=== PATIENT | female | born 1975 | race Caucasian/White ===

== ENCOUNTER 2020-07-11 11:35 | Outpatient (CLI) | payer OTHER, SELFPAY | END 2020-07-11 11:36 | disposition home or self-care (01) | LOC: CHSLAB 11:47 | PROVIDERS: Visit Provider Specialist | DX: D22.5 Melanocytic nevi of trunk (principal) | CPT/HCPCS: 88305; 88342 ==

== ENCOUNTER 2025-01-18 23:00 | Emergency (ER) | payer OTHER, SELFPAY ==
--- NOTE | ~2025-01-18 | XR_ITS ---
Examination: XR chest 1V portable Clinical History: shortness of breath X 1 WEEK. Comparison: None Technique: Portable AP Findings: Heart size normal. Lungs clear. No acute bony abnormality. IMPRESSION: 1. No acute cardiopulmonary findings given portable technique. Reviewed, dictated and finalized at location R.
--- NOTE | ~2025-01-18 | CT_ITS ---
CTA CHEST CLINICAL HISTORY: rule out PE. SHORTNESS OF BREATH. ELEVATED D-DIMER. . COMPARISON: Chest x-ray today TECHNIQUE: Helical CTA performed from thoracic inlet to upper abdomen 200 mL IV contrast Coronal, sagittal reformats. Multiplanar MIPS CT images acquired with automatic exposure control for dose reduction DLP: 2105 mGy-cm FINDINGS: Pulmonary arteries: No PE. Thoracic Aorta: No dissection or aneurysm. Heart/pericardium: Unremarkable. RV/LV ratio: Normal. Lungs/Pleura: Trace interlobular septal thickening. Tracheobronchial tree: Patent. Nodes: No enlarged nodes. Bones: No acute bony abnormality. Soft tissues: Unremarkable. Visualized upper abdomen: Hepatomegaly, with steatosis. IMPRESSION: 1. No PE or other acute cardiopulmonary findings. Reviewed, dictated and finalized at location R.
[2025-01-18 23:00] VITALS: BP 190/98; PULSE 107; PULSE 109; RESP 20; TEMP 36.6; O2SAT 100; O2SAT 98
--- NOTE | 2025-01-18 23:02 | ED_ITS ---
HPI - SOB/Dyspnea General Chief Complaint: Shortness of Breath/Dyspnea Stated Complaint: Short of breath Time Seen by Provider: 01/18/25 23:02 Source: patient Mode of arrival: ambulatory Limitations: no limitations History of Present Illness HPI Narrative: 49-year-old female with a history of obesity, diabetes mellitus, dyslipidemia, anxiety/ depression presents to the ED with a one-week history of -- shortness of breath. Patient is having difficulty catching her breath. No chest pain. No cough or sputum production. No fever or chills. MD elicited complaint: shortness of breath Onset (ago): week(s) ( One week) Severity: moderate Exacerbating factors: nothing Relieving factors: nothing Associated symptoms: denies other symptoms Treatment prior to arrival: none Related Data Home oxygen amount: none Allergies Allergy/AdvReac Type Severity Reaction Status Date / Time codeine AdvReac Severe Swelling Verified 01/18/25 23:09 of Lip/Tongue/Throat hydrocodone AdvReac Severe Swelling Verified 01/18/25 23:09 of Lip/Tongue/Throat Review of Systems 2 Review of Systems: All systems reviewed & are unremarkable except as noted in HPI and below Constitutional: Constitutional: Reports as per HPI and Reports no additional constitutional complaints Eyes: Eyes: Reports as per HPI and Reports no additional eye complaints ENT: Reports system reviewed and no additional complaints, except as documented and Reports as per HPI Cardiovascular: Cardiovascular: Reports as per HPI and Reports no additional cardiovascular complaints Respiratory: Respiratory: Reports as per HPI, Reports no additional respiratory complaints and Reports dyspnea Gastrointestinal: Gastrointestinal: Reports as per HPI and Reports no additional gastrointestinal complaints Genitourinary: Genitourinary: Reports no additional female genitourinary complaints and Reports as per HPI Musculoskeletal: Musculoskeletal: Reports no additional musculoskeletal complaints and Reports as per HPI Integumentary/Breasts: Skin/Breast: Reports system reviewed and no additional complaints, except as docu and Reports as per HPI Neurologic: Reports system reviewed and no additional complaints, except as documented and Reports as per HPI Psychiatric: Psychiatric: Reports no additional psychiatric complaints and Reports as per HPI Endocrine: Endocrine: Reports no additional endocrine complaints and Reports as per HPI Hematologic/Lymphatic: Hematologic/Lymphatic: Reports no additional hematologic/lymphatic complaints and Reports as per HPI Allergic/Immunologic: Allergic/Immunologic: Reports no additional allergic/immunologic complaints and Reports as per HPI [facility] Past Medical History Medical History (Updated 01/19/25 @ 01:17 by Cabrera Schneider MD) Diabetes mellitus Dyslipidemia Exam 2 Narrative: oxygen saturation of 99% on room air with respiratory rate of 19. Const: General: no acute distress Nutritional Appearance: obese O rientation/consciousness: patient oriented x3 Limitations: no limitations HENMT: Head: normal to inspection Ears: external ears normal F rocio/Nose/Sinus: Normal external nose present Face and sinus: normal facial exam Mouth: Yes Normal oral and palatal mucosa present Throat: posterior oropharynx normal Eyes: Conjunctivae: conjunctivae normal Pupils: Equal, round and reactive pupils present EOM: EOMs intact bilaterally Direct Ophthalmoscopy: no photophobia Neck: Neck: normal visual inspection, no lymphadenopathy and no meningeal signs Chest: Chest palpation & inspection: normal inspection of the chest Resp: Effort & Inspection: normal respiratory effort Auscultation: clear to auscultation bilaterally Cardio: Rate: regular rate Rhythm: regular rhythm GI: GI Palp: Yes Soft to palpation Auscultation: normal bowel sounds : General: Yes no CVA tenderness Back/Spine/Pelvis: Back: no CVA tenderness Skin: General skin exam: normal color Rashes: no rashes Wounds: no wounds Neuro: General: patient oriented x3, moves all extremities, no meningeal signs, no focal motor deficits and CN's II-XI intact bilaterally Cranial nerves: Yes Nystagmus not present Speech: normal speech Gait exam (Neuro): Normal gait present Extrem: General: normal to inspection, no clubbing, cyanosis or edema and no pedal edema Psych: Mental Status: mental status grossly normal Affect: normal affect Attitude: cooperative Course Course Emergency Course: Shortness of breath- clinically the patient does not have any evidence of respiratory distress. Patient is saturating 99% on room air with a respiratory rate of 20. Chest is clear on auscultation. Chest x-ray does not show any infiltrates evidence of CHF. The patient had an ABG on room air which was noted to be 742/30/79/94%. The patient had a positive D-dimer for which the patient went on to have a CTA of the chest which did not show any evidence of PE or right heart strain. No consolidation noted. Vital Signs Vital signs: Vital Signs Temperature 36.6 C 01/18/25 23:00 Pulse Rate 107 H 01/18/25 23:00 Respiratory Rate 20 10/10/25 23:00 Blood Pressure 190/98 H 01/18/25 23:00 Pulse Oximetry 100 01/18/25 23:00 Oxygen Delivery Room Air 01/18/25 23:00 Temperature 36.6 C 01/18/25 23:00 Pulse Rate 95 01/19/25 00:22 Respiratory Rate 27 H 01/19/25 00:02 Blood Pressure 180/92 H 01/19/25 00:22 Pulse Oximetry 99 01/19/25 00:22 Oxygen Delivery Room Air 01/18/25 23:00 MDM - SOB/Dyspnea MDM Narrative Medical decision making narrative: Shortness of breath anxiety obstructive sleep apnea Differential Diagnosis Differential diagnosis: Likely acute exacerbation of chronic obstructive airways disease Medical Records Attestation: I reviewed the patient's medical records. Lab Data Attestation: I reviewed the patient's lab results. 01/18/25 23:32 01/18/25 23:32 Labs: Lab Results 01/18/25 Range/Units 23:32 WBC 8.6 (4.8-10.8) K/mm3 RBC 3.87 L (4.20-5.40) M/mm3 Hgb 10.7 L (12.0-15.0) g/dL Hct 33.5 L (35.0-49.0) % MCV 86.6 (78.0-102.0) fL MCH 27.6 (27.0-31.0) pg MCHC 31.9 L (32-36) g/dL RDW 14.6 H (11.6-14.4) % Plt Count 278 (150-420) K/mm3 MPV 10.3 (9.2-11.8) fl Immature Gran % (Auto) 0.5 H (0.0-0.0) % Neut % (Auto) 70.1 H (50.0-70.0) % Lymph % (Auto) 20.8 (18.0-42.0) % [place] % (Auto) 5.7 (2.0-11.0) % Eos % (Auto) 2.4 (1.0-6.0) % Baso % (Auto) 0.5 (0.0-1.0) % Lymph # (Auto) 1.80 (1.10-4.50) K/mm3 Fergus # (Auto) 0.49 (0.10-0.90) K/mm3 Eos # (Auto) 0.21 (0.02-0.50) K/mm3 Baso # (Auto) 0.04 (0.00-0.10) K/mm3 Abs Immat Gran (auto) 0.04 H (0.00-0.00) K/mm3 Absolute Neuts (auto) 6.06 (1.70-7.20) K/mm3 Absolute Nucleated RBC 0.00 (0.00-0.00) K/mm3 Nucleated RBC % 0.0 (0-0.0) % PT 10.1 (9.50-12.1) Seconds INR 0.9 APTT 24.7 (23.9-30.70) Sec D-Dimer 1.53 H (0.19-0.50) mg/L Sodium 142 (137-145) mmol/L Potassium 3.6 (3.4-5.0) mmol/L Chloride 111 H (98-107) mmol/L Carbon Dioxide 19 L (22-30) mmol/L Anion Gap 12 (4-12) mmol/L BUN 19 H (7-17) mg/dL Creatinine 0.80 (0.7-1.0) mg/dL Estim Creat Clear Calc 130 ml/min Estimated GFR > 60 (59 - ) Glucose 121 H (65-110) mg/dL Calculated Osmolality 297 H (285-295) mOsm/kg Lactic Acid 1.7 (0.4-2.0) mmol/L Calcium 10.0 (8.4-10.2) mg/dL Total Bilirubin 0.5 (0.2-1.3) mg/dL AST 21 (14-36) U/L ALT 22 (6-35) U/L Alkaline Phosphatase 74 (38-126) U/L Troponin I < 0.012 (0.000-0.034) ng/mL NT-Pro-B Natriuret Pep Pending Total Protein 7.6 (6.3-8.2) g/dL Albumin 4.4 (3.5-5.1) g/dL Procalcitonin 0.1 ng/mL Influenza A (RT-PCR) Negative (Negative) Influenza B (RT-PCR) Negative (Negative) RSV (RT-PCR) Negative (Negative) SARS-CoV-2 RNA (RT-PCR) Negative (Negative) ABG Data ABG results: 01/18/25 23:32 Puncture Site Right radial ABG pH 7.42 ABG pCO2 29.6 L ABG pO2 79.3 L ABG HCO3 18.7 L ABG O2 Saturation 94.4 L ABG Base Excess -4.7 L Oxyhemoglobin 93.9 L O2 Delivery Device Room air O2 Liters/Min Not Reportable ECG Data EKG #1: ECG completion date: 01/18/25 ECG completion time: 23:11 Interpretation: sinus tachycardia with a heart rate of 100. Normal axis. No ST-T wave changes noted. Discharge Plan Discharge Clinical Impression: Shortness of breath, Anxiety Patient Disposition: Home Condition: Stable Instructions: Antibiotic Form, Anxiety (ED), Shortness of Breath (ED) Patient Language: Moldovan Follow-up/Referrals: UNKNOWN,DOCTOR [Primary Care Provider] Time of Disposition: 01:17
--- OUTSIDE RECORDS SUMMARY | 2025-01-18 23:02 | XMS_ITS | Patient Health Record ---
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 Name Role Phone Adolph DEL ROSARIO, Eli Primary Care Provider Yancy Leonard Unavailable [phone] Navi Eleno Unavailable [phone] Allergies Allergen (clinical drug ingredient) Drug/Non Drug Allergy documented on EMR Reaction Allergy Type Onset Date Status acetaminophen / hydrocodone HYDROcodone-Acetamino phen Unknown Drug Allergy Active hydrocodone / ibuprofen HYDROcodone-Ibuprofen Unknown Drug Allergy Active codeine Codeine Unknown Drug Allergy Active Results Component Value Reference Range Notes UDT Reviewed date:12/21/2024 12:16:53 PM Interpretation: Performing Lab: Notes/Report: THC n 0 - 50 ng/ml Cocaine n 0 - 300 ng/ml Amphetamine p 0 - 1000 ng/ml Buprenorphine (BUP) n 0 - 10 ng/ml Secobarbital (Bar) n 0 - 300 ng/ml Oxazepam (BZO) n 0 - 300 ng/ml 9-zbktpkmhgv-8,0-ubssldrb-9,3-diphenylpyrrolidine (ANAMIKA P) n 0 - 300 ng/ml Methamphetamine (MET) n 0 - 1000 ng/ml Methylenedioxymethamphetamine (MDMA) n 0 - 500 ng/ml Morphine (MOP 300/[id number]) n 0 - 300 ng/ml Methadone (MTD) n 0 - 300 ng/ml Phencyclidine (PCP) n 0 - 25 ng/ml Nortriptyline (TCA) n 0 - 1000 ng/ml Oxycodone n 0 - 300 ng/ml UDT Reviewed date:01/04/2025 11:15:09 AM Interpretation: Performing Lab: Notes/Report: THC n 0 - 50 ng/ml Cocaine n 0 - 300 ng/ml Amphetamine p 0 - 1000 ng/ml Buprenorphine (BUP) n 0 - 10 ng/ml Secobarbital (Bar) n 0 - 300 ng/ml Oxazepam (BZO) n 0 - 300 ng/ml 6-drckynlmef-1,5-ytpzwqol-5,3-diphenylpyrrolidine (ANAMIKA P) n 0 - 300 ng/ml Methamphetamine (MET) n 0 - 1000 ng/ml Methylenedioxymethamphetamine (MDMA) n 0 - 500 ng/ml Morphine (MOP 300/[id number]) n 0 - 300 ng/ml Methadone (MTD) n 0 - 300 ng/ml Phencyclidine (PCP) n 0 - 25 ng/ml Nortriptyline (TCA) n 0 - 1000 ng/ml Oxycodone n 0 - 300 ng/ml UDT Reviewed date:06/08/2024 09:24:19 AM Interpretation: Performing Lab: Notes/Report: THC NEG 0 - 50 ng/ml Cocaine NEG 0 - 300 ng/ml Amphetamine NEG 0 - 1000 ng/ml Buprenorphine (BUP) NEG 0 - 10 ng/ml Secobarbital (Bar) NEG 0 - 300 ng/ml Oxazepam (BZO) NEG 0 - 300 ng/ml 1-oqwgtsdvlb-8,6-zuailsgt-2,3-diphenylpyrrolidine (ANAMIKA P) NEG 0 - 300 ng/ml Methamphetamine (MET) NEG 0 - 1000 ng/ml Methylenedioxymethamphetamine (MDMA) NEG 0 - 500 ng/ml Morphine (MOP 300/[id number]) NEG 0 - 300 ng/ml Methadone (MTD) NEG 0 - 300 ng/ml Phencyclidine (PCP) NEG 0 - 25 ng/ml Nortriptyline (TCA) NEG 0 - 1000 ng/ml Oxycodone NEG 0 - 300 ng/ml x NEG 0 - 300 ng/ml UDT Reviewed date:08/20/2024 10:28:56 AM Interpretation: Performing Lab: Notes/Report: THC N 0 - 50 ng/ml Cocaine N 0 - 300 ng/ml Amphetamine N 0 - 1000 ng/ml Buprenorphine (BUP) N 0 - 10 ng/ml Secobarbital (Bar) N 0 - 300 ng/ml Oxazepam (BZO) N 0 - 300 ng/ml 1-ajsauzucpa-9,3-rsznerss-5,3-diphenylpyrrolidine (ANAMIKA P) N 0 - 300 ng/ml Methamphetamine (MET) N 0 - 1000 ng/ml Methylenedioxymethamphetamine (MDMA) N 0 - 500 ng/ml Morphine (MOP 300/[id number]) N 0 - 300 ng/ml Methadone (MTD) N 0 - 300 ng/ml Phencyclidine (PCP) N 0 - 25 ng/ml Nortriptyline (TCA) N 0 - 1000 ng/ml Oxycodone N 0 - 300 ng/ml UDT Reviewed date:06/19/2024 09:57:39 PM Interpretation: Performing Lab: Notes/Report: THC N 0 - 50 ng/ml Cocaine N 0 - 300 ng/ml Amphetamine N 0 - 1000 ng/ml Buprenorphine (BUP) N 0 - 10 ng/ml Secobarbital (Bar) N 0 - 300 ng/ml Oxazepam (BZO) N 0 - 300 ng/ml 3-vtdlzginsm-8,7-qivfwjqw-4,3-diphenylpyrrolidine (ANAMIKA P) N 0 - 300 ng/ml Methamphetamine (MET) N 0 - 1000 ng/ml Methylenedioxymethamphetamine (MDMA) N 0 - 500 ng/ml Morphine (MOP 300/[id number]) N 0 - 300 ng/ml Methadone (MTD) N 0 - 300 ng/ml Nortriptyline (TCA) N 0 - 1000 ng/ml Oxycodone N 0 - 300 ng/ml UDT Reviewed date:09/20/2024 10:23:49 AM Interpretation: Performing Lab: Notes/Report: THC NEG 0 - 50 ng/ml Cocaine NEG 0 - 300 ng/ml Amphetamine POS 0 - 1000 ng/ml Buprenorphine (BUP) NEG 0 - 10 ng/ml Secobarbital (Bar) NEG 0 - 300 ng/ml Oxazepam (BZO) NEG 0 - 300 ng/ml 9-ronisvaedg-4,0-uqwbeotj-2,3-diphenylpyrrolidine (ANAMIKA P) NEG 0 - 300 ng/ml Methamphetamine (MET) NEG 0 - 1000 ng/ml Methylenedioxymethamphetamine (MDMA) NEG 0 - 500 ng/ml Morphine (MOP 300/[id number]) NEG 0 - 300 ng/ml Methadone (MTD) NEG 0 - 300 ng/ml Phencyclidine (PCP) NEG 0 - 25 ng/ml Nortriptyline (TCA) NEG 0 - 1000 ng/ml Oxycodone NEG 0 - 300 ng/ml x NEG 0 - 300 ng/ml Reason For Referral No Information Medications Medication SIG (Take, Route, Frequency, Duration) Notes Start Date End Date Status Atorvastatin Calcium 10 MG Tablet 1 tablet in the evening Orally Once a day 06/08/2024 Active Esomeprazole Magnesium 40 MG Capsule Delayed Release 1 capsule 1/2 to 1 hour before morning meal Orally Once a day 06/08/2024 Active DULoxetine HCl 30 MG Capsule Delayed Release Particles 3 capsules Orally Once a day 06/08/2024 Active Celecoxib 200 MG Capsule 1 capsule with food Orally Once a day 06/08/2024 Active metFORMIN HCl 1000 MG Tablet 1 tablet wi th a meal Orally twice a day Active Fexofenadine HCl 180 MG Tablet 1 tablet Swallow whole with water; do not take with fruit juices. Orally Once a day Active Famotidine 20 MG Tablet 1 tablet at bedt matilda as needed Orally Once a day Active Atomoxetine HCl 40 MG Capsule 1 capsule in the morning Orally Once a day; Duration: 90 days 01/04/2025 Active Iron 325 (65 Fe) MG Tablet 1 tablet Oral ly once a day 06/08/2024 Active Magnesium 200 MG Tablet 1 tablet Orally Once a day 06/08/2024 Active medroxyPROGESTERone Acetate 150 MG/ML Suspension ADMINISTER 1 ML IN THE MUSCLE ONCE EVERY 12 WEEKS DIRECTED. Intramuscular; Duration: 90 Days Active traZODone HCl 50 MG Tablet 1 tablet at b edtime as needed Orally Once a day; Duration: 90 days 01/04/2025 Active Social History Tobacco Use: Social History Observation Description Date Details (start date - stop date) Never Smoker NA - NA Sex Assigned At : Social History Observation Description Sex Assigned At Female Social History Miscellaneous: Social Info Question Answer Notes Advance Care Planning Are you your own decision-maker Yes Do you have Power of Postal Transportation Clerk for Health or [facility]? No Safety issues: Are there any firearms in the house? 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 No Any household pets? Yes Drug/Alcohol: Social Info Question Answer Notes Drugs Have you used drugs other than those for medical reasons in the past 12 months? No AUDIT-C (Standard) Did you have a drink containing alcohol in the past year? Yes Points 1 How often did you have six or more drinks on one occasion in the past year? Never (0 point) How many drinks did you have on a typical day when you were drinking in the past year? 1 or 2 drinks (0 point) How often did you have a drink containing alcohol in the past year? 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 Adm its, gummies a couple times a year if that Do you drink alcohol? No Problems Problem Type SNOMED Code ICD Code Onset Dates Problem Status W/U Status Risk Notes Problem Screening for cardiovascular system disease (430492878) Encounter for screening for cardiovascular disorders (Z13.6) Active confirmed Problem Dietary management surveillance (914904794) Dietary counseling and surveillance (Z71.3) Active confirmed Problem Depression Screening (321814061) Encounter for screening for depression (Z13.31) Active confirmed Problem Generalized anxiety disorder (44641829) SHAYNE (generalized anxiety disorder) (F41.1) Active confirmed Problem Attention deficit hyperactivity disorder (941648484) ADHD (attention deficit hyperactivity disorder), combined type (F90.2) Active confirmed Problem Mild recurrent major depression (48207317) MDD (major depressive disorder), recurrent episode, mild (F33.0) Active confirmed Problem Elevated blood-pressure reading without diagnosis of hypertension (813506277) Elevated blood pressure reading (R03.0) Active confirmed Problem Insomnia (374538644) Insomnia (G47.00) Active confirmed Vital Signs Heart Rate 106 /min 01/04/2025 Respiratory Rate 16 /min 01/04/2025 Height-cm 165.1 cm 01/04/2025 Blood pressure diastolic 95 mm Hg 01/04/2025 Weight-kg 143.34 kg 01/04/2025 Height 65 in 01/04/2025 Blood pressure systolic 166 mm Hg 01/04/2025 Weight 316 lbs 01/04/2025 BMI 52.58 kg/m2 01/04/2025 Encounters Encounter Location Date Provider Diagnosis [facility] [place] [address] [facility] [address] [place] [address] 06/08/2024 Yancy Therrl Elevated blood press ure reading R03.0 ; MDD (major depressive disorder), recurrent episode, mild F33.0 ; SHAYNE (generalized anxiety disorder) F41.1 and ADHD (attention deficit hyperactivity disorder), combined type F90.2 [facility] [place] [address] [facility] [address] [place] [address] 06/19/2024 Eleno Minor of concentratio n R41.840 [facility] [place] [address] [facility] [address] [place] [address] 06/26/2024 Yancy Therrl Encounter for screen ing for depression Z13.31 ; ADHD (attention deficit hyperactivity disorder), combined type F90.2 ; Encounter for screening for cardiovascular disorders Z13.6 ; Dietary counseling and surveillance Z71.3 ; Elevated blood pressure reading R03.0 ; MDD (major depressive disorder), recurrent episode, mild F33.0 and SHAYNE (generalized anxiety disorder) F41.1 [facility] [place] [address] [address] 07/24/2024 Yancy Thery Encounter for screen ing for depression Z13.31 ; ADHD (attention deficit hyperactivity disorder), combined type F90.2 ; Encounter for screening for cardiovascular disorders Z13.6 ; Dietary counseling and surveillance Z71.3 ; Elevated blood pressure reading R03.0 ; MDD (major depressive disorder), recurrent episode, mild F33.0 and SHAYNE (generalized anxiety disorder) F41.1 [facility] [place] [address] [address] 08/20/2024 Yancy Thery Encounter for screen ing for depression Z13.31 ; ADHD (attention deficit hyperactivity disorder), combined type F90.2 ; Encounter for screening for cardiovascular disorders Z13.6 ; Dietary counseling and surveillance Z71.3 ; Elevated blood pressure reading R03.0 ; MDD (major depressive disorder), recurrent episode, mild F33.0 and SHAYNE (generalized anxiety disorder) F41.1 [facility], [facility] [address] [facility] [address] [place] [address] 09/20/2024 Yancy Thery Encounter for screen ing for depression Z13.31 ; ADHD (attention deficit hyperactivity disorder), combined type F90.2 ; Encounter for screening for cardiovascular disorders Z13.6 ; Dietary counseling and surveillance Z71.3 ; Elevated blood pressure reading R03.0 ; MDD (major depressive disorder), recurrent episode, mild F33.0 and SHAYNE (generalized anxiety disorder) F41.1 [facility] [address] [facility] [address] [place] [address] 12/21/2024 Yancy Thery Encounter for screen ing for depression Z13.31 ; ADHD (attention deficit hyperactivity disorder), combined type F90.2 ; Encounter for screening for cardiovascular disorders Z13.6 ; Dietary counseling and surveillance Z71.3 ; Elevated blood pressure reading R03.0 ; MDD (major depressive disorder), recurrent episode, mild F33.0 ; SHAYNE (generalized anxiety disorder) F41.1 and Insomnia G47.00 [place] [id number] [facility] [address] [place] [address] 01/04/2025 Yancy Thery ADHD (attention defi cit hyperactivity disorder), combined type F90.2 ; MDD (major depressive disorder), recurrent episode, mild F33.0 ; SHAYNE (generalized anxiety disorder) F41.1 and Insomnia G47.00 [facility], [place] [address] [facility] [address] [place] [address] 05/25/2024 Yancy Thery [facility], [place] [address] [facility] [address] [place] [address] 01/04/2025 Yancy Thery ADHD (attention defi cit hyperactivity disorder), combined type F90.2 [facility], [place] [address] [facility] [address] [place] [address] 06/17/2024 Yancy Thery [facility], [place] [address] [facility] [address] [place] [address] 06/18/2024 Yancy Thery [facility], [place] [address] [facility] [address] [place] [address] 10/19/2024 Yancy Thery ADHD (attention defi cit hyperactivity disorder), combined type F90.2 [facility] [address] [place] [address] [place] [address] 11/18/2024 Yancy Thery ADHD (attention defi cit hyperactivity disorder), combined type F90.2 [facility] [address] [facility] [address] [place] [address] 12/21/2024 Yancy Thery ADHD (attention defi cit hyperactivity disorder), combined type F90.2 [facility] [address] [facility] [address] [place] [address] 12/21/2024 Yancy Thery [facility] [address] [facility] [address] [place] [address] 12/21/2024 Yancy Thery [facility] [address] [facility] [address] [place] [address] 12/24/2024 Yancy Thery [facility] [address] [facility] [address] [place] [address] 12/24/2024 Yancy Therrl Assessments Encounter Date Diagnosis (ICD Code) Assessment Notes Treatment Notes Treatment Clinical Notes Section Notes 06/08/2024 Elevated blood pressure reading (ICD-10 - R03.0) 1. DEPRESSION Cymbalta 90 mg daily- PCP prescribed for depression and chronic pain 2. Anxiety Cymbalta 90 mg daily- PCP prescribed for depression and anxiety chronic pain 3. ADHD Schedule Creyos testing obtain results neuropsychological testing ADHD stimulates education Discuss with patient risk of misuse, abuse, and addiction before prescribing stimulant medicines. [facility] patients not to share their prescribed stimulant with anyone else. Educate patients and their families on these serious risks, proper storage of the medicine, and proper disposal of any unused medicine. Educated patient will monitor Throughout treatment, regularly assess and monitor them for signs and symptoms of nonmedical use, addiction, and potential diversion, which may be evidenced by more frequent renewal. requests than warranted by the prescribed dosage. Random [facility] prescription reviewed local pharmacy in [place], no early refills on control substance educated on non-stimulate and stimulates 4. elevated blood pressure educated on healthy b/p 120/80 monitor b/p at home refer to PCP, Urgent care/ER heart healthy diet and excise limit salt intake limit soda intake and caffiene increase water Discussed and educated pt regarding benzodiazepines are generally not intended for prolonged use and that use can cause tolerance, dependence, depression, and associated memory issues including dementias (this list is not exhaustive). Benzodiazepine use is generally not recommended concurrently with pain medications and/or other controlled substances educated on all medications, benefits, side effects and risk, and educated on depression, anxiety, and ADHD, mood d/o and educated on compliance of medications, metabolic and movement d/o education appointment is, continue therapy discussion with patient about course of treatment and patient instructions. education on serotonin syndrome SSRI/SNRI side effects discussed including but not limited to, gastric upset, nausea, vomiting, diarrhea and/or constipation, weight changes, sexual side effects including loss of libido, increased suicidal thoughts/behaviors in children and young adults, and serotonin syndrome. Medication Management and Follow-Up - Plan: - Schedule follow-up appointments every 1-3 months to monitor the patient's response to the medication regimen. - Reinforce the importance of avoiding recreational drug use due to potential neurotoxicity and interactions with prescribed medications. 06/19/2024 Lack of concentration (ICD-10 - R41.840) Analysis of Results: The cognitive assessment and ASRS questionnaire results present a non-congruent pattern, where self-reported ADHD symptoms are indicative, but cognitive test performance falls within the typical range. Cognitive Performance: No cognitive markers were outside the typical range, suggesting that performance on structured cognitive tasks was within expected norms. Strong scores in Planning (96th percentile) and Spatial Working Memory (97th percentile) indicate well-preserved executive function in structured settings. Some variability in Reaction Time (36th percentile) and Attention Errors (43rd percentile), but not severe enough to suggest significant impairment. Response Inhibition (Double Trouble task) showed a low percentile (3rd-10th percentile in some areas), indicating possible mild impulsivity. Self-Reported ADHD Symptoms (ASRS Questionnaire) : Part A: Score of 5 (Threshold >3) Suggests b- haviors consistent with ADHD. Part B: Score of 10 Further sup- orts significant ADHD-related behaviors. These results suggest the presence of ADHD-like symptoms in real-life settings, despite relatively strong cognitive performance in a controlled environment. Discrepancy Between Self-Report and Cognitive Tests: Possible explanations: ADHD symptoms can be more apparent in unstructured, real-world settings (e.g., daily responsibiliti es, work, social interactions) but less evident in structured testing environments. Compensatory strategies may allow for high performance in cognitive tasks while difficulties persist in real-world functioning. Other factors (stress, anxiety, sleep deprivation) could influence self-perceived ADHD symptoms. Recommendation s: 1. Clinical Follow-Up & Further Assessment A clinical interview focusing on real-world executive functioning challenges. Consider functional assessments (e.g., [place] Adult ADHD Rating Scale) to evaluate ADHD symptoms in daily life. Assess for co-occurring conditions (e.g., anxiety, depression, sleep issues) that might contribute to symptoms. 2. Behavioral & Lifestyle Interventions Executive Function Coaching: Strategies for organization, time management, and sustained attention in real-world settings. Environmental Modifications: Structured routines, reminders, and reducing distractions in work or home environments. Cognitive Behavioral Therapy (CBT): To improve coping strategies for attention and impulse control. 3. Consideration of Treatment Options If symptoms significantly impact daily functioning, medication evaluation with a healthcare provider may be warranted. Non-medication strategies, such as mindfulness training, exercise, and behavioral interventions, may also be effective. Conclusion: While cognitive test results do not strongly indicate ADHD, the ASRS questionnaire suggests real-world symptoms that should not be overlooked. A comprehensive clinical evaluation is recommended to determine the best course of action, with interventions focused on improving daily executive function and coping strategies. 06/26/2024 Encounter for screening for depression (ICD-10 - Z13.31) Learning About Depression Screening material was published 1. DEPRESSION Cymbalta 90 mg daily- PCP prescribed for depression and chronic pain 2. Anxiety Cymbalta 90 mg daily- PCP prescribed for depression and anxiety chronic pain 3. ADHD reviewed Creyos testing Indicative ADHD Part A 6 Part B 01/20 ASRS 5 obtain results neuropsychological testing HX Wellbutrin ( does not tolerate severe dry mouth) Add Straterra 25 mg daily in am for 1 week then increase Straterra 40 mg daily in am patient has HTN and uncomtrolled currently and seeing PCP discuss cardiovascualr risk HTN and no stimulates discuss non stimulates options educated on non-stimulate obtain labs PCP 4. elevated blood pressure LAST 2 VISITS educated on healthy b/p 120/80 monitor b/p at home refer to PCP, Urgent care/ER heart healthy diet and excise limit salt intake limit soda intake and caffiene increase water Pateint not on B/P RX and seen PCP 06/05 and schedule to see PCP 12/03 - patient reported will call PCP today to be seen and discuss B/P sooner or Urgent care DISCUSS Cardiovascule risk and HTN and no stimulates with HTN discuss scheduling appt with PCP or may go to Urgent care for HTN, Discussed and educated pt regarding benzodiazepines are generally not intended for prolonged use and that use can cause tolerance, dependence, depression, and associated memory issues including dementias (this list is not exhaustive). Benzodiazepine use is generally not recommended concurrently with pain medications and/or other controlled substances educated on all medications, benefits, side effects and risk, and educated on depression, anxiety, and ADHD, mood d/o and educated on compliance of medications, metabolic and movement d/o education appointment is, continue therapy discussion with patient about course of treatment and patient instructions. education on serotonin syndrome SSRI/SNRI side effects discussed including but not limited to, gastric upset, nausea, vomiting, diarrhea and/or constipation, weight changes, sexual side effects including loss of libido, increased suicidal thoughts/behaviors in children and young adults, and serotonin syndrome. Medication Management and Follow-Up - Plan: - Schedule follow-up appointments every 1-3 months to monitor the patient's response to the medication regimen. - Reinforce the importance of avoiding recreational drug use due to potential neurotoxicity and interactions with prescribed medications. 06/26/2024 ADHD (attention deficit hyperactivity disorder), combined type (ICD-10 - F90.2) Learning About Attention Deficit Hyperactivity Disorder (ADHD) in Adults material was published, Attention Deficit Hyperactivity Disorder (ADHD) in Adults: Care Instructions material was published, Learning About Stimulant Medicines for Attention Deficit Hyperactivity Disorder (ADHD) material was published 1. DEPRESSION Cymbalta 90 mg daily- PCP prescribed for depression and chronic pain 2. Anxiety Cymbalta 90 mg daily- PCP prescribed for depression and anxiety chronic pain 3. ADHD reviewed Creyos testing Indicative ADHD Part A 08/14 Part B 01/20 ASRS 5 obtain results neuropsychological testing HX Wellbutrin ( does not tolerate severe dry mouth) Add Straterra 25 mg daily in am for 1 week then increase Straterra 40 mg daily in am patient has HTN and uncomtrolled currently and seeing PCP discuss cardiovascualr risk HTN and no stimulates discuss non stimulates options educated on non-stimulate obtain labs PCP 4. elevated blood pressure LAST 2 VISITS educated on healthy b/p 120/80 monitor b/p at home refer to PCP, Urgent care/ER heart healthy diet and excise limit salt intake limit soda intake and caffiene increase water Pateint not on B/P RX and seen PCP 06/05 and schedule to see PCP 12/03 - patient reported will call PCP today to be seen and discuss B/P sooner or Urgent care DISCUSS Cardiovascule risk and HTN and no stimulates with HTN discuss scheduling appt with PCP or may go to Urgent care for HTN, Discussed and educated pt regarding benzodiazepines are generally not intended for prolonged use and that use can cause tolerance, dependence, depression, and associated memory issues including dementias (this list is not exhaustive). Benzodiazepine use is generally not recommended concurrently with pain medications and/or other controlled substances educated on all medications, benefits, side effects and risk, and educated on depression, anxiety, and ADHD, mood d/o and educated on compliance of medications, metabolic and movement d/o education appointment is, continue therapy discussion with patient about course of treatment and patient instructions. education on serotonin syndrome SSRI/SNRI side effects discussed including but not limited to, gastric upset, nausea, vomiting, diarrhea and/or constipation, weight changes, sexual side effects including loss of libido, increased suicidal thoughts/behaviors in children and young adults, and serotonin syndrome. Medication Management and Follow-Up - Plan: - Schedule follow-up appointments every 1-3 months to monitor the patient's response to the medication regimen. - Reinforce the importance of avoiding recreational drug use due to potential neurotoxicity and interactions with prescribed medications. 07/24/2024 Encounter for screening for depression (ICD-10 - Z13.31) Learning About Depression Screening material was published 1. DEPRESSION Cymbalta 90 mg daily- PCP prescribed for depression and chronic pain 2. Anxiety Cymbalta 90 mg daily- PCP prescribed for depression and anxiety chronic pain 3. ADHD reviewed [facility] testing Indicative ADHD Part A /6 Part B 01/20 ASRS 5 obtain results neuropsychological testing HX Wellbutrin ( does not tolerate severe dry mouth) increase Straterra 60 mg daily in am- tolerating rx no s/e patient has HTN and uncomtrolled currently and seeing PCP discuss cardiovascualr risk HTN and no stimulates discuss non stimulates options educated on non-stimulate obtain labs PCP 4. elevated blood pressure LAST 2 VISITS educated on healthy b/p 120/80 monitor b/p at home refer to PCP, Urgent care/ER heart healthy diet and excise limit salt intake limit soda intake and caffiene increase water Pateint not on B/P RX and seen PCP 06/05 and schedule to see PCP 08/03 - patient reported fabien monitor B/P and document BP for PCP and may start B/P rx with PCP next week appt, DISCUSS Cardiovascular risk and HTN and no stimulates with HTN Discussed and educated pt regarding benzodiazepines are generally not intended for prolonged use and that use can cause tolerance, dependence, depression, and associated memory issues including dementias (this list is not exhaustive). Benzodiazepine use is generally not recommended concurrently with pain medications and/or other controlled substances educated on all medications, benefits, side effects and risk, and educated on depression, anxiety, and ADHD, mood d/o and educated on compliance of medications, metabolic and movement d/o education appointment is, continue therapy discussion with patient about course of treatment and patient instructions. education on serotonin syndrome SSRI/SNRI side effects discussed including but not limited to, gastric upset, nausea, vomiting, diarrhea and/or constipation, weight changes, sexual side effects including loss of libido, increased suicidal thoughts/behaviors in children and young adults, and serotonin syndrome. Medication Management and Follow-Up - Plan: - Schedule follow-up appointments every 1-3 months to monitor the patient's response to the medication regimen. - Reinforce the importance of avoiding recreational drug use due to potential neurotoxicity and interactions with prescribed medications. 08/20/2024 Encounter for screening for depression (ICD-10 - Z13.31) Learning About Depression Screening material was published 1. DEPRESSION Cymbalta 90 mg daily- PCP prescribed for depression and chronic pain 2. Anxiety Cymbalta 90 mg daily- PCP prescribed for depression and anxiety chronic pain 3. ADHD reviewed [facility] testing Indicative ADHD Part A 08/14 Part B 01/20 ASRS 5 obtain results neuropsychological testing HX Wellbutrin ( does not tolerate severe dry mouth) Straterra 60 mg daily in am- reported not seeing a difference on rx tolerating rx no s/e Add Vyvanse 20 mg in am discuss rx and monitor B/P patient has HTN seeing PCP- starting B/P rx 08/28/24 discuss cardiovascualr risk HTN and no stimulates discuss non stimulates options educated on non-stimulate obtain labs PCP 4. elevated blood pressure - seen PCP and starting B/P rx 08/28/24 educated on healthy b/p 120/80 monitor b/p at home refer to PCP, Urgent care/ER heart healthy diet and excise limit salt intake limit soda intake and caffiene increase water DISCUSS Cardiovascular risk and HTN and no stimulates with HTN ADHD stimulates education- NO CANNABIS USE Discuss with patient risk of misuse, abuse, and addiction before prescribing stimulant medicines. [facility] [employer] patients not to share their prescribed stimulant with anyone else. Educate patients and their families on these serious risks, proper storage of the medicine, and proper disposal of any unused medicine. Educated patient will monitor Throughout treatment, regularly assess and monitor them for signs and symptoms of nonmedical use, addiction, and potential diversion, which may be evidenced by more frequent renewal. requests than warranted by the prescribed dosage. Random UDS [place] prescription reviewed local pharmacy in [facility], no early refills on control substance educated on non-stimulate and stimulates Notes: BOXED WARNINGCaution with history of drug dependence or alcoholism. Marked tolerance and psychological dependence may result from chronic abusive use. Sree psychotic episodes may occur, especially with parenteral abuse. Careful supervision required for withdrawal from abusive use to avoid severe depression. Withdrawal following chronic use may unmask symptoms of underlying disorder that may require follow-up Educated patient unable to switch pharmacy or switch dosing for control substance once sent to pharmacy related to shortages or other reasons Discussed and educated pt regarding benzodiazepines are generally not intended for prolonged use and that use can cause tolerance, dependence, depression, and associated memory issues including dementias (this list is not exhaustive). Benzodiazepine use is generally not recommended concurrently with pain medications and/or other controlled substances educated on all medications, benefits, side effects and risk, and educated on depression, anxiety, and ADHD, mood d/o and educated on compliance of medications, metabolic and movement d/o education appointment is, continue therapy discussion with patient about course of treatment and patient instructions. education on serotonin syndrome SSRI/SNRI side effects discussed including but not limited to, gastric upset, nausea, vomiting, diarrhea and/or constipation, weight changes, sexual side effects including loss of libido, increased suicidal thoughts/behaviors in children and young adults, and serotonin syndrome. Medication Management and Follow-Up - Plan: - Schedule follow-up appointments every 1-3 months to monitor the patient's response to the medication regimen. - Reinforce the importance of avoiding recreational drug use due to potential neurotoxicity and interactions with prescribed medications. 08/20/2024 ADHD (attention deficit hyperactivity disorder), combined type (ICD-10 - F90.2) Learning About Attention Deficit Hyperactivity Disorder (ADHD) in Adults material was published, Attention Deficit Hyperactivity Disorder (ADHD) in Adults: Care Instructions material was published, Learning About Stimulant Medicines for Attention Deficit Hyperactivity Disorder (ADHD) material was published 1. DEPRESSION Cymbalta 90 mg daily- PCP prescribed for depression and chronic pain 2. Anxiety Cymbalta 90 mg daily- PCP prescribed for depression and anxiety chronic pain 3. ADHD reviewed [facility] testing Indicative ADHD Part A 08/14 Part B 01/20 ASRS 5 obtain results neuropsychological testing HX Wellbutrin ( does not tolerate severe dry mouth) Straterra 60 mg daily in am- reported not seeing a difference on rx tolerating rx no s/e Add Vyvanse 20 mg in am discuss rx and monitor B/P patient has HTN seeing PCP- starting B/P rx 08/28/24 discuss cardiovascualr risk HTN and no stimulates discuss non stimulates options educated on non-stimulate obtain labs PCP 4. elevated blood pressure - seen PCP and starting B/P rx 08/28/24 educated on healthy b/p 120/80 monitor b/p at home refer to PCP, Urgent care/ER heart healthy diet and excise limit salt intake limit soda intake and caffiene increase water DISCUSS Cardiovascular risk and HTN and no stimulates with HTN ADHD stimulates education- NO CANNABIS USE Discuss with patient risk of misuse, abuse, and addiction before prescribing stimulant medicines. [employer] patients not to share their prescribed stimulant with anyone else. Educate patients and their families on these serious risks, proper storage of the medicine, and proper disposal of any unused medicine. Educated patient will monitor Throughout treatment, regularly assess and monitor them for signs and symptoms of nonmedical use, addiction, and potential diversion, which may be evidenced by more frequent renewal. requests than warranted by the prescribed dosage. Random UDS [place] prescription reviewed local pharmacy in [place], no early refills on control substance educated on non-stimulate and stimulates Notes: BOXED WARNINGCaution with history of drug dependence or alcoholism. Marked tolerance and psychological dependence may result from chronic abusive use. Sree psychotic episodes may occur, especially with parenteral abuse. Careful supervision required for withdrawal from abusive use to avoid severe depression. Withdrawal following chronic use may unmask symptoms of underlying disorder that may require follow-up Educated patient unable to switch pharmacy or switch dosing for control substance once sent to pharmacy related to shortages or other reasons Discussed and educated pt regarding benzodiazepines are generally not intended for prolonged use and that use can cause tolerance, dependence, depression, and associated memory issues including dementias (this list is not exhaustive). Benzodiazepine use is generally not recommended concurrently with pain medications and/or other controlled substances educated on all medications, benefits, side effects and risk, and educated on depression, anxiety, and ADHD, mood d/o and educated on compliance of medications, metabolic and movement d/o education appointment is, continue therapy discussion with patient about course of treatment and patient instructions. education on serotonin syndrome SSRI/SNRI side effects discussed including but not limited to, gastric upset, nausea, vomiting, diarrhea and/or constipation, weight changes, sexual side effects including loss of libido, increased suicidal thoughts/behaviors in children and young adults, and serotonin syndrome. Medication Management and Follow-Up - Plan: - Schedule follow-up appointments every 1-3 months to monitor the patient's response to the medication regimen. - Reinforce the importance of avoiding recreational drug use due to potential neurotoxicity and interactions with prescribed medications. 09/20/2024 Encounter for screening for depression (ICD-10 - Z13.31) Learning About Depression Screening material was published 1. DEPRESSION Cymbalta 90 mg daily- PCP prescribed for depression and chronic pain 2. Anxiety Cymbalta 90 mg daily- PCP prescribed for depression and anxiety chronic pain 3. ADHD reviewed [facility] testing Indicative ADHD Part A 6 Part B 01/20 ASRS 5 obtain results neuropsychological testing HX Wellbutrin ( does not tolerate severe dry mouth) Straterra 60 mg daily in am- tolerating rx no s/e Vyvanse 20 mg in am discuss rx and monitor B/P patient has HTN seeing PCP- B/P rx 08/28/24 discuss cardiovascualr risk HTN and no stimulates discuss non stimulates options educated on non-stimulate obtain labs PCP 4. elevated blood pressure - seen PCP and starting B/P rx 08/28/24 educated on healthy b/p 120/80 monitor b/p at home refer to PCP, Urgent care/ER heart healthy diet and excise limit salt intake limit soda intake and caffiene increase water DISCUSS Cardiovascular risk and HTN and no stimulates with HTN ADHD stimulates education- NO CANNABIS USE Discuss with patient risk of misuse, abuse, and addiction before prescribing stimulant medicines. [facility] [employer] patients not to share their prescribed stimulant with anyone else. Educate patients and their families on these serious risks, proper storage of the medicine, and proper disposal of any unused medicine. Educated patient will monitor Throughout treatment, regularly assess and monitor them for signs and symptoms of nonmedical use, addiction, and potential diversion, which may be evidenced by more frequent renewal. requests than warranted by the prescribed dosage. Random UDS [place] prescription reviewed local pharmacy in [facility], no early refills on control substance educated on non-stimulate and stimulates Notes: BOXED WARNINGCaution with history of drug dependence or alcoholism. Marked tolerance and psychological dependence may result from chronic abusive use. Sree psychotic episodes may occur, especially with parenteral abuse. Careful supervision required for withdrawal from abusive use to avoid severe depression. Withdrawal following chronic use may unmask symptoms of underlying disorder that may require follow-up Educated patient unable to switch pharmacy or switch dosing for control substance once sent to pharmacy related to shortages or other reasons Discussed and educated pt regarding benzodiazepines are generally not intended for prolonged use and that use can cause tolerance, dependence, depression, and associated memory issues including dementias (this list is not exhaustive). Benzodiazepine use is generally not recommended concurrently with pain medications and/or other controlled substances educated on all medications, benefits, side effects and risk, and educated on depression, anxiety, and ADHD, mood d/o and educated on compliance of medications, metabolic and movement d/o education appointment is, continue therapy discussion with patient about course of treatment and patient instructions. education on serotonin syndrome SSRI/SNRI side effects discussed including but not limited to, gastric upset, nausea, vomiting, diarrhea and/or constipation, weight changes, sexual side effects including loss of libido, increased suicidal thoughts/behaviors in children and young adults, and serotonin syndrome. Medication Management and Follow-Up - Plan: - Schedule follow-up appointments every 1-3 months to monitor the patient's response to the medication regimen. - Reinforce the importance of avoiding recreational drug use due to potential neurotoxicity and interactions with prescribed medications. 10/19/2024 ADHD (attention deficit hyperactivity disorder), combined type (ICD-10 - F90.2) 11/18/2024 ADHD (attention deficit hyperactivity disorder), combined type (ICD-10 - F90.2) 12/21/2024 Encounter for screening for depression (ICD-10 - Z13.31) Learning About Depression Screening material was published 1. DEPRESSION Cymbalta 90 mg daily- PCP prescribed for depression and chronic pain 2. Anxiety Cymbalta 90 mg daily- PCP prescribed for depression and anxiety chronic pain 3. ADHD reviewed [facility] testing Indicative ADHD Part A /6 Part B 01/20 ASRS 5 obtain results neuropsychological testing HX Wellbutrin ( does not tolerate severe dry mouth) decrease Straterra 40 mg daily in am- for 1 week then stop tolerating rx no s/e Vyvanse 20 mg in am for 2 weeks then follow up discuss rx and monitor B/P and HR at home next weeks and bring into office and see PCP patient has HTN seeing PCP- B/P rx 08/28/24 discuss cardiovascualr risk HTN and no stimulates discuss non stimulates options educated on non-stimulate obtain labs PCP 4. elevated blood pressure - seen PCP and starting B/P rx 08/28/24 refer to see PCP with B/P and HR educated on healthy b/p 120/80 monitor b/p at home refer to PCP, Urgent care/ER heart healthy diet and excise limit salt intake limit soda intake and caffiene increase water DISCUSS Cardiovascular risk and HTN and no stimulates with HTN ADHD stimulates education- NO CANNABIS USE Discuss with patient risk of misuse, abuse, and addiction before prescribing stimulant medicines. [employer] patients not to share their prescribed stimulant with anyone else. Educate patients and their families on these serious risks, proper storage of the medicine, and proper disposal of any unused medicine. Educated patient will monitor Throughout treatment, regularly assess and monitor them for signs and symptoms of nonmedical use, addiction, and potential diversion, which may be evidenced by more frequent renewal. requests than warranted by the prescribed dosage. Random UDS [place] prescription reviewed local pharmacy in [place], no early refills on control substance educated on non-stimulate and stimulates Notes: BOXED WARNINGCaution with history of drug dependence or alcoholism. Marked tolerance and psychological dependence may result from chronic abusive use. Sree psychotic episodes may occur, especially with parenteral abuse. Careful supervision required for withdrawal from abusive use to avoid severe depression. Withdrawal following chronic use may unmask symptoms of underlying disorder that may require follow-up 5. Insomnia discuss and educated on Adding Trazodone 50 mg at bedtime Sleep Hygeine- - KEEP YOUR BEDROOM DARK - GET LOTS OF NATURAL LIGHT IN THE MORNING. - DON'T WORK ON YOUR COMPUTER OR PHONE LATE AT NIGHT. - AVOID NAPS DURING THE DAY. - NO CAFFEINE 3 HOURS OR MORE AFTER WAKE UP TIME. - ONLY USE YOUR BED FOR SLEEPING - GET A RELAXATION ROUTINE BEFORE BED. - IF YOU CAN'T GET TO SLEEP AFTER 15 TO 30 MINUTES GET OUT OF BED AND DO SOMETHING RELAXING. - DON'T DRINK ALCOHOL IN THE EVENING or limit alcohol to 1 drink. Discussed and educated pt regarding benzodiazepines are generally not intended for prolonged use and that use can cause tolerance, dependence, depression, and associated memory issues including dementias (this list is not exhaustive). Benzodiazepine use is generally not recommended concurrently with pain medications and/or other controlled substances educated on all medications, benefits, side effects and risk, and educated on depression, anxiety, and ADHD, mood d/o and educated on compliance of medications, metabolic and movement d/o education appointment is, continue therapy discussion with patient about course of treatment and patient instructions. education on serotonin syndrome SSRI/SNRI side effects discussed including but not limited to, gastric upset, nausea, vomiting, diarrhea and/or constipation, weight changes, sexual side effects including loss of libido, increased suicidal thoughts/behaviors in children and young adults, and serotonin syndrome. Medication Management and Follow-Up - Plan: - Schedule follow-up appointments every 1-3 months to monitor the patient's response to the medication regimen. - Reinforce the importance of avoiding recreational drug use due to potential neurotoxicity and interactions with prescribed medications. 12/21/2024 ADHD (attention deficit hyperactivity disorder), combined type (ICD-10 - F90.2) 01/04/2025 ADHD (attention deficit hyperactivity disorder), combined type (ICD-10 - F90.2) Learning About Attention Deficit Hyperactivity Disorder (ADHD) in Adults material was published, Attention Deficit Hyperactivity Disorder (ADHD) in Adults: Care Instructions material was published, Learning About Stimulant Medicines for Attention Deficit Hyperactivity Disorder (ADHD) material was published 1. DEPRESSION Cymbalta 90 mg daily- PCP prescribed for depression and chronic pain 2. Anxiety Cymbalta 90 mg daily- PCP prescribed for depression and anxiety chronic pain 3. ADHD reviewed [facility] testing Indicative ADHD Part A 08/14 Part B 01/20 ASRS 5 obtain results neuropsychological testing HX Wellbutrin ( does not tolerate severe dry mouth) tolerating rx no s/e D/C Vyvanse 20 mg in am - CONITNUE TO HAVE ELEVATED B/P and HR patient will see PCP or Urgent care today restart Straterra 40 mg in am discuss rx and monitor B/P and HR patient has HTN PCP- B/P rx 08/28/24 discuss cardiovascualr risk HTN and no stimulates discuss non stimulates options educated on non-stimulate obtain labs PCP 4. elevated blood pressure - seen PCP and starting B/P rx 08/28/24 refer to see PCP with B/P and HR educated on healthy b/p 120/80 monitor b/p at home refer to PCP, Urgent care/ER heart healthy diet and excise limit salt intake limit soda intake and caffiene increase water DISCUSS Cardiovascular risk and HTN and no stimulates with HTN- will d/c Vyvanse r/t elevated B/P will see PCP/Urgent care today for B/P REVIEWED B/P reading patient taken at home over last 2 weeks ADHD stimulates education- NO CANNABIS USE Discuss with patient risk of misuse, abuse, and addiction before prescribing stimulant medicines. [facility] [employer] patients not to share their prescribed stimulant with anyone else. Educate patients and their families on these serious risks, proper storage of the medicine, and proper disposal of any unused medicine. Educated patient will monitor Throughout treatment, regularly assess and monitor them for signs and symptoms of nonmedical use, addiction, and potential diversion, which may be evidenced by more frequent renewal. requests than warranted by the prescribed dosage. Random UDS [place] prescription reviewed local pharmacy in [place], no early refills on control substance educated on non-stimulate and stimulates Notes: BOXED WARNINGCaution with history of drug dependence or alcoholism. Marked tolerance and psychological dependence may result from chronic abusive use. Sree psychotic episodes may occur, especially with parenteral abuse. Careful supervision required for withdrawal from abusive use to avoid severe depression. Withdrawal following chronic use may unmask symptoms of underlying disorder that may require follow-up 5. Insomnia- improved on rx discuss and educated on all rx Trazodone 50 mg at bedtime Sleep Hygeine- - KEEP YOUR BEDROOM DARK - GET LOTS OF NATURAL LIGHT IN THE MORNING. - DON'T WORK ON YOUR COMPUTER OR PHONE LATE AT NIGHT. - AVOID NAPS DURING THE DAY. - NO CAFFEINE 3 HOURS OR MORE AFTER WAKE UP TIME. - ONLY USE YOUR BED FOR SLEEPING - GET A RELAXATION ROUTINE BEFORE BED. - IF YOU CAN'T GET TO SLEEP AFTER 15 TO 30 MINUTES GET OUT OF BED AND DO SOMETHING RELAXING. - DON'T DRINK ALCOHOL IN THE EVENING or limit alcohol to 1 drink. Discussed and educated pt regarding benzodiazepines are generally not intended for prolonged use and that use can cause tolerance, dependence, depression, and associated memory issues including dementias (this list is not exhaustive). Benzodiazepine use is generally not recommended concurrently with pain medications and/or other controlled substances educated on all medications, benefits, side effects and risk, and educated on depression, anxiety, and ADHD, mood d/o and educated on compliance of medications, metabolic and movement d/o education appointment is, continue therapy discussion with patient about course of treatment and patient instructions. education on serotonin syndrome SSRI/SNRI side effects discussed including but not limited to, gastric upset, nausea, vomiting, diarrhea and/or constipation, weight changes, sexual side effects including loss of libido, increased suicidal thoughts/behaviors in children and young adults, and serotonin syndrome. Medication Management and Follow-Up - Plan: - Schedule follow-up appointments every 1-3 months to monitor the patient's response to the medication regimen. - Reinforce the importance of avoiding recreational drug use due to potential neurotoxicity and interactions with prescribed medications. 01/04/2025 MDD (major depressive disorder), recurrent episode, mild (ICD-10 - F33.0) Preventing Depression From Coming Back: Care Instructions material was published, Learning About Depression material was published, Learning About How to Get Help During a Mental Health Crisis material was published 1. DEPRESSION Cymbalta 90 mg daily- PCP prescribed for depression and chronic pain 2. Anxiety Cymbalta 90 mg daily- PCP prescribed for depression and anxiety chronic pain 3. ADHD reviewed [facility] testing Indicative ADHD Part A 08/14 Part B 01/20 ASRS 5 obtain results neuropsychological testing HX Wellbutrin ( does not tolerate severe dry mouth) tolerating rx no s/e D/C Vyvanse 20 mg in am - CONITNUE TO HAVE ELEVATED B/P and HR patient will see PCP or Urgent care today restart Straterra 40 mg in am discuss rx and monitor B/P and HR patient has HTN PCP- B/P rx 08/28/24 discuss cardiovascualr risk HTN and no stimulates discuss non stimulates options educated on non-stimulate obtain labs PCP 4. elevated blood pressure - seen PCP and starting B/P rx 08/28/24 refer to see PCP with B/P and HR educated on healthy b/p 120/80 monitor b/p at home refer to PCP, Urgent care/ER heart healthy diet and excise limit salt intake limit soda intake and caffiene increase water DISCUSS Cardiovascular risk and HTN and no stimulates with HTN- will d/c Vyvanse r/t elevated B/P will see PCP/Urgent care today for B/P REVIEWED B/P reading patient taken at home over last 2 weeks ADHD stimulates education- NO CANNABIS USE Discuss with patient risk of misuse, abuse, and addiction before prescribing stimulant medicines. [facility] [employer] patients not to share their prescribed stimulant with anyone else. Educate patients and their families on these serious risks, proper storage of the medicine, and proper disposal of any unused medicine. Educated patient will monitor Throughout treatment, regularly assess and monitor them for signs and symptoms of nonmedical use, addiction, and potential diversion, which may be evidenced by more frequent renewal. requests than warranted by the prescribed dosage. Random [facility] [place] prescription reviewed local pharmacy in [facility], no early refills on control substance educated on non-stimulate and stimulates Notes: BOXED WARNINGCaution with history of drug dependence or alcoholism. Marked tolerance and psychological dependence may result from chronic abusive use. Sree psychotic episodes may occur, especially with parenteral abuse. Careful supervision required for withdrawal from abusive use to avoid severe depression. Withdrawal following chronic use may unmask symptoms of underlying disorder that may require follow-up 5. Insomnia- improved on rx discuss and educated on all rx Trazodone 50 mg at bedtime Sleep Hygeine- - KEEP YOUR BEDROOM DARK - GET LOTS OF NATURAL LIGHT IN THE MORNING. - DON'T WORK ON YOUR COMPUTER OR PHONE LATE AT NIGHT. - AVOID NAPS DURING THE DAY. - NO CAFFEINE 3 HOURS OR MORE AFTER WAKE UP TIME. - ONLY USE YOUR BED FOR SLEEPING - GET A RELAXATION ROUTINE BEFORE BED. - IF YOU CAN'T GET TO SLEEP AFTER 15 TO 30 MINUTES GET OUT OF BED AND DO SOMETHING RELAXING. - DON'T DRINK ALCOHOL IN THE EVENING or limit alcohol to 1 drink. Discussed and educated pt regarding benzodiazepines are generally not intended for prolonged use and that use can cause tolerance, dependence, depression, and associated memory issues including dementias (this list is not exhaustive). Benzodiazepine use is generally not recommended concurrently with pain medications and/or other controlled substances educated on all medications, benefits, side effects and risk, and educated on depression, anxiety, and ADHD, mood d/o and educated on compliance of medications, metabolic and movement d/o education appointment is, continue therapy discussion with patient about course of treatment and patient instructions. education on serotonin syndrome SSRI/SNRI side effects discussed including but not limited to, gastric upset, nausea, vomiting, diarrhea and/or constipation, weight changes, sexual side effects including loss of libido, increased suicidal thoughts/behaviors in children and young adults, and serotonin syndrome. Medication Management and Follow-Up - Plan: - Schedule follow-up appointments every 1-3 months to monitor the patient's response to the medication regimen. - Reinforce the importance of avoiding recreational drug use due to potential neurotoxicity and interactions with prescribed medications. 01/04/2025 ADHD (attention deficit hyperactivity disorder), combined type (ICD-10 - F90.2) 01/04/2025 SHAYNE (generalized anxiety disorder) (ICD-10 - F41.1) Learning About Generalized Anxiety Disorder material was published, Generalized Anxiety Disorder: Care Instructions material was published, Learning About Anxiety Disorders material was published, Learning About Transcranial Magnetic Stimulation (TMS) material was published 1. DEPRESSION Cymbalta 90 mg daily- PCP prescribed for depression and chronic pain 2. Anxiety Cymbalta 90 mg daily- PCP prescribed for depression and anxiety chronic pain 3. ADHD reviewed [facility] testing Indicative ADHD Part A 08/14 Part B 01/20 ASRS 5 obtain results neuropsychological testing HX Wellbutrin ( does not tolerate severe dry mouth) tolerating rx no s/e D/C Vyvanse 20 mg in am - CONITNUE TO HAVE ELEVATED B/P and HR patient will see PCP or Urgent care today restart Straterra 40 mg in am discuss rx and monitor B/P and HR patient has HTN PCP- B/P rx 08/28/24 discuss cardiovascualr risk HTN and no stimulates discuss non stimulates options educated on non-stimulate obtain labs PCP 4. elevated blood pressure - seen PCP and starting B/P rx 08/28/24 refer to see PCP with B/P and HR educated on healthy b/p 120/80 monitor b/p at home refer to PCP, Urgent care/ER heart healthy diet and excise limit salt intake limit soda intake and caffiene increase water DISCUSS Cardiovascular risk and HTN and no stimulates with HTN- will d/c Vyvanse r/t elevated B/P will see PCP/Urgent care today for B/P REVIEWED B/P reading patient taken at home over last 2 weeks ADHD stimulates education- NO CANNABIS USE Discuss with patient risk of misuse, abuse, and addiction before prescribing stimulant medicines. [facility] [employer] patients not to share their prescribed stimulant with anyone else. Educate patients and their families on these serious risks, proper storage of the medicine, and proper disposal of any unused medicine. Educated patient will monitor Throughout treatment, regularly assess and monitor them for signs and symptoms of nonmedical use, addiction, and potential diversion, which may be evidenced by more frequent renewal. requests than warranted by the prescribed dosage. Random [facility] [place] prescription reviewed local pharmacy in [facility], no early refills on control substance educated on non-stimulate and stimulates Notes: BOXED WARNINGCaution with history of drug dependence or alcoholism. Marked tolerance and psychological dependence may result from chronic abusive use. Sree psychotic episodes may occur, especially with parenteral abuse. Careful supervision required for withdrawal from abusive use to avoid severe depression. Withdrawal following chronic use may unmask symptoms of underlying disorder that may require follow-up 5. Insomnia- improved on rx discuss and educated on all rx Trazodone 50 mg at bedtime Sleep Hygeine- - KEEP YOUR BEDROOM DARK - GET LOTS OF NATURAL LIGHT IN THE MORNING. - DON'T WORK ON YOUR COMPUTER OR PHONE LATE AT NIGHT. - AVOID NAPS DURING THE DAY. - NO CAFFEINE 3 HOURS OR MORE AFTER WAKE UP TIME. - ONLY USE YOUR BED FOR SLEEPING - GET A RELAXATION ROUTINE BEFORE BED. - IF YOU CAN'T GET TO SLEEP AFTER 15 TO 30 MINUTES GET OUT OF BED AND DO SOMETHING RELAXING. - DON'T DRINK ALCOHOL IN THE EVENING or limit alcohol to 1 drink. Discussed and educated pt regarding benzodiazepines are generally not intended for prolonged use and that use can cause tolerance, dependence, depression, and associated memory issues including dementias (this list is not exhaustive). Benzodiazepine use is generally not recommended concurrently with pain medications and/or other controlled substances educated on all medications, benefits, side effects and risk, and educated on depression, anxiety, and ADHD, mood d/o and educated on compliance of medications, metabolic and movement d/o education appointment is, continue therapy discussion with patient about course of treatment and patient instructions. education on serotonin syndrome SSRI/SNRI side effects discussed including but not limited to, gastric upset, nausea, vomiting, diarrhea and/or constipation, weight changes, sexual side effects including loss of libido, increased suicidal thoughts/behaviors in children and young adults, and serotonin syndrome. Medication Management and Follow-Up - Plan: - Schedule follow-up appointments every 1-3 months to monitor the patient's response to the medication regimen. - Reinforce the importance of avoiding recreational drug use due to potential neurotoxicity and interactions with prescribed medications. 12/21/2024 ADHD (attention deficit hyperactivity disorder), combined type (ICD-10 - F90.2) Learning About Attention Deficit Hyperactivity Disorder (ADHD) in Adults material was published, Attention Deficit Hyperactivity Disorder (ADHD) in Adults: Care Instructions material was published, Learning About Stimulant Medicines for Attention Deficit Hyperactivity Disorder (ADHD) material was published 1. DEPRESSION Cymbalta 90 mg daily- PCP prescribed for depression and chronic pain 2. Anxiety Cymbalta 90 mg daily- PCP prescribed for depression and anxiety chronic pain 3. ADHD reviewed [facility] testing Indicative ADHD Part A 08/14 Part B 01/20 ASRS 5 obtain results neuropsychological testing HX Wellbutrin ( does not tolerate severe dry mouth) decrease Straterra 40 mg daily in am- for 1 week then stop tolerating rx no s/e Vyvanse 20 mg in am for 2 weeks then follow up discuss rx and monitor B/P and HR at home next weeks and bring into office and see PCP patient has HTN seeing PCP- B/P rx 08/28/24 discuss cardiovascualr risk HTN and no stimulates discuss non stimulates options educated on non-stimulate obtain labs PCP 4. elevated blood pressure - seen PCP and starting B/P rx 08/28/24 refer to see PCP with B/P and HR educated on healthy b/p 120/80 monitor b/p at home refer to PCP, Urgent care/ER heart healthy diet and excise limit salt intake limit soda intake and caffiene increase water DISCUSS Cardiovascular risk and HTN and no stimulates with HTN ADHD stimulates education- NO CANNABIS USE Discuss with patient risk of misuse, abuse, and addiction before prescribing stimulant medicines. [facility] [employer] patients not to share their prescribed stimulant with anyone else. Educate patients and their families on these serious risks, proper storage of the medicine, and proper disposal of any unused medicine. Educated patient will monitor Throughout treatment, regularly assess and monitor them for signs and symptoms of nonmedical use, addiction, and potential diversion, which may be evidenced by more frequent renewal. requests than warranted by the prescribed dosage. Random [facility] [place] prescription reviewed local pharmacy in [place], no early refills on control substance educated on non-stimulate and stimulates Notes: BOXED WARNINGCaution with history of drug dependence or alcoholism. Marked tolerance and psychological dependence may result from chronic abusive use. Sree psychotic episodes may occur, especially with parenteral abuse. Careful supervision required for withdrawal from abusive use to avoid severe depression. Withdrawal following chronic use may unmask symptoms of underlying disorder that may require follow-up 5. Insomnia discuss and educated on Adding Trazodone 50 mg at bedtime Sleep Hygeine- - KEEP YOUR BEDROOM DARK - GET LOTS OF NATURAL LIGHT IN THE MORNING. - DON'T WORK ON YOUR COMPUTER OR PHONE LATE AT NIGHT. - AVOID NAPS DURING THE DAY. - NO CAFFEINE 3 HOURS OR MORE AFTER WAKE UP TIME. - ONLY USE YOUR BED FOR SLEEPING - GET A RELAXATION ROUTINE BEFORE BED. - IF YOU CAN'T GET TO SLEEP AFTER 15 TO 30 MINUTES GET OUT OF BED AND DO SOMETHING RELAXING. - DON'T DRINK ALCOHOL IN THE EVENING or limit alcohol to 1 drink. Discussed and educated pt regarding benzodiazepines are generally not intended for prolonged use and that use can cause tolerance, dependence, depression, and associated memory issues including dementias (this list is not exhaustive). Benzodiazepine use is generally not recommended concurrently with pain medications and/or other controlled substances educated on all medications, benefits, side effects and risk, and educated on depression, anxiety, and ADHD, mood d/o and educated on compliance of medications, metabolic and movement d/o education appointment is, continue therapy discussion with patient about course of treatment and patient instructions. education on serotonin syndrome SSRI/SNRI side effects discussed including but not limited to, gastric upset, nausea, vomiting, diarrhea and/or constipation, weight changes, sexual side effects including loss of libido, increased suicidal thoughts/behaviors in children and young adults, and serotonin syndrome. Medication Management and Follow-Up - Plan: - Schedule follow-up appointments every 1-3 months to monitor the patient's response to the medication regimen. - Reinforce the importance of avoiding recreational drug use due to potential neurotoxicity and interactions with prescribed medications. 12/21/2024 Encounter for screening for cardiovascular disorders (ICD-10 - Z13.6) 1. DEPRESSION Cymbalta 90 mg daily- PCP prescribed for depression and chronic pain 2. Anxiety Cymbalta 90 mg daily- PCP prescribed for depression and anxiety chronic pain 3. ADHD reviewed [facility] testing Indicative ADHD Part A 08/14 Part B 01/20 ASRS 5 obtain results neuropsychological testing HX Wellbutrin ( does not tolerate severe dry mouth) decrease Straterra 40 mg daily in am- for 1 week then stop tolerating rx no s/e Vyvanse 20 mg in am for 2 weeks then follow up discuss rx and monitor B/P and HR at home next weeks and bring into office and see PCP patient has HTN seeing PCP- B/P rx 08/28/24 discuss cardiovascualr risk HTN and no stimulates discuss non stimulates options educated on non-stimulate obtain labs PCP 4. elevated blood pressure - seen PCP and starting B/P rx 08/28/24 refer to see PCP with B/P and HR educated on healthy b/p 120/80 monitor b/p at home refer to PCP, Urgent care/ER heart healthy diet and excise limit salt intake limit soda intake and caffiene increase water DISCUSS Cardiovascular risk and HTN and no stimulates with HTN ADHD stimulates education- NO CANNABIS USE Discuss with patient risk of misuse, abuse, and addiction before prescribing stimulant medicines. [facility] [employer] patients not to share their prescribed stimulant with anyone else. Educate patients and their families on these serious risks, proper storage of the medicine, and proper disposal of any unused medicine. Educated patient will monitor Throughout treatment, regularly assess and monitor them for signs and symptoms of nonmedical use, addiction, and potential diversion, which may be evidenced by more frequent renewal. requests than warranted by the prescribed dosage. Random [facility] prescription reviewed local pharmacy in [facility], no early refills on control substance educated on non-stimulate and stimulates Notes: BOXED WARNINGCaution with history of drug dependence or alcoholism. Marked tolerance and psychological dependence may result from chronic abusive use. Sree psychotic episodes may occur, especially with parenteral abuse. Careful supervision required for withdrawal from abusive use to avoid severe depression. Withdrawal following chronic use may unmask symptoms of underlying disorder that may require follow-up 5. Insomnia discuss and educated on Adding Trazodone 50 mg at bedtime Sleep Hygeine- - KEEP YOUR BEDROOM DARK - GET LOTS OF NATURAL LIGHT IN THE MORNING. - DON'T WORK ON YOUR COMPUTER OR PHONE LATE AT NIGHT. - AVOID NAPS DURING THE DAY. - NO CAFFEINE 3 HOURS OR MORE AFTER WAKE UP TIME. - ONLY USE YOUR BED FOR SLEEPING - GET A RELAXATION ROUTINE BEFORE BED. - IF YOU CAN'T GET TO SLEEP AFTER 15 TO 30 MINUTES GET OUT OF BED AND DO SOMETHING RELAXING. - DON'T DRINK ALCOHOL IN THE EVENING or limit alcohol to 1 drink. Discussed and educated pt regarding benzodiazepines are generally not intended for prolonged use and that use can cause tolerance, dependence, depression, and associated memory issues including dementias (this list is not exhaustive). Benzodiazepine use is generally not recommended concurrently with pain medications and/or other controlled substances educated on all medications, benefits, side effects and risk, and educated on depression, anxiety, and ADHD, mood d/o and educated on compliance of medications, metabolic and movement d/o education appointment is, continue therapy discussion with patient about course of treatment and patient instructions. education on serotonin syndrome SSRI/SNRI side effects discussed including but not limited to, gastric upset, nausea, vomiting, diarrhea and/or constipation, weight changes, sexual side effects including loss of libido, increased suicidal thoughts/behaviors in children and young adults, and serotonin syndrome. Medication Management and Follow-Up - Plan: - Schedule follow-up appointments every 1-3 months to monitor the patient's response to the medication regimen. - Reinforce the importance of avoiding recreational drug use due to potential neurotoxicity and interactions with prescribed medications. 09/20/2024 ADHD (attention deficit hyperactivity disorder), combined type (ICD-10 - F90.2) Learning About Attention Deficit Hyperactivity Disorder (ADHD) in Adults material was published, Attention Deficit Hyperactivity Disorder (ADHD) in Adults: Care Instructions material was published, Learning About Stimulant Medicines for Attention Deficit Hyperactivity Disorder (ADHD) material was published 1. DEPRESSION Cymbalta 90 mg daily- PCP prescribed for depression and chronic pain 2. Anxiety Cymbalta 90 mg daily- PCP prescribed for depression and anxiety chronic pain 3. ADHD reviewed [facility] testing Indicative ADHD Part A 08/14 Part B 01/20 ASRS 5 obtain results neuropsychological testing HX Wellbutrin ( does not tolerate severe dry mouth) Straterra 60 mg daily in am- tolerating rx no s/e Vyvanse 20 mg in am discuss rx and monitor B/P patient has HTN seeing PCP- B/P rx 08/28/24 discuss cardiovascualr risk HTN and no stimulates discuss non stimulates options educated on non-stimulate obtain labs PCP 4. elevated blood pressure - seen PCP and starting B/P rx 08/28/24 educated on healthy b/p 120/80 monitor b/p at home refer to PCP, Urgent care/ER heart healthy diet and excise limit salt intake limit soda intake and caffiene increase water DISCUSS Cardiovascular risk and HTN and no stimulates with HTN ADHD stimulates education- NO CANNABIS USE Discuss with patient risk of misuse, abuse, and addiction before prescribing stimulant medicines. [facility] [employer] patients not to share their prescribed stimulant with anyone else. Educate patients and their families on these serious risks, proper storage of the medicine, and proper disposal of any unused medicine. Educated patient will monitor Throughout treatment, regularly assess and monitor them for signs and symptoms of nonmedical use, addiction, and potential diversion, which may be evidenced by more frequent renewal. requests than warranted by the prescribed dosage. Random [facility] [place] prescription reviewed local pharmacy in [facility], no early refills on control substance educated on non-stimulate and stimulates Notes: BOXED WARNINGCaution with history of drug dependence or alcoholism. Marked tolerance and psychological dependence may result from chronic abusive use. Sree psychotic episodes may occur, especially with parenteral abuse. Careful supervision required for withdrawal from abusive use to avoid severe depression. Withdrawal following chronic use may unmask symptoms of underlying disorder that may require follow-up Educated patient unable to switch pharmacy or switch dosing for control substance once sent to pharmacy related to shortages or other reasons Discussed and educated pt regarding benzodiazepines are generally not intended for prolonged use and that use can cause tolerance, dependence, depression, and associated memory issues including dementias (this list is not exhaustive). Benzodiazepine use is generally not recommended concurrently with pain medications and/or other controlled substances educated on all medications, benefits, side effects and risk, and educated on depression, anxiety, and ADHD, mood d/o and educated on compliance of medications, metabolic and movement d/o education appointment is, continue therapy discussion with patient about course of treatment and patient instructions. education on serotonin syndrome SSRI/SNRI side effects discussed including but not limited to, gastric upset, nausea, vomiting, diarrhea and/or constipation, weight changes, sexual side effects including loss of libido, increased suicidal thoughts/behaviors in children and young adults, and serotonin syndrome. Medication Management and Follow-Up - Plan: - Schedule follow-up appointments every 1-3 months to monitor the patient's response to the medication regimen. - Reinforce the importance of avoiding recreational drug use due to potential neurotoxicity and interactions with prescribed medications. 07/24/2024 ADHD (attention deficit hyperactivity disorder), combined type (ICD-10 - F90.2) Learning About Attention Deficit Hyperactivity Disorder (ADHD) in Adults material was published, Attention Deficit Hyperactivity Disorder (ADHD) in Adults: Care Instructions material was published, Learning About Stimulant Medicines for Attention Deficit Hyperactivity Disorder (ADHD) material was published 1. DEPRESSION Cymbalta 90 mg daily- PCP prescribed for depression and chronic pain 2. Anxiety Cymbalta 90 mg daily- PCP prescribed for depression and anxiety chronic pain 3. ADHD reviewed [facility] testing Indicative ADHD Part A 08/14 Part B 01/20 ASRS 5 obtain results neuropsychological testing HX Wellbutrin ( does not tolerate severe dry mouth) increase Straterra 60 mg daily in am- tolerating rx no s/e patient has HTN and uncomtrolled currently and seeing PCP discuss cardiovascualr risk HTN and no stimulates discuss non stimulates options educated on non-stimulate obtain labs PCP 4. elevated blood pressure LAST 2 VISITS educated on healthy b/p 120/80 monitor b/p at home refer to PCP, Urgent care/ER heart healthy diet and excise limit salt intake limit soda intake and caffiene increase water Pateint not on B/P RX and seen PCP 06/05 and schedule to see PCP 08/03 - patient reported fabien monitor B/P and document BP for PCP and may start B/P rx with PCP next week appt, DISCUSS Cardiovascular risk and HTN and no stimulates with HTN Discussed and educated pt regarding benzodiazepines are generally not intended for prolonged use and that use can cause tolerance, dependence, depression, and associated memory issues including dementias (this list is not exhaustive). Benzodiazepine use is generally not recommended concurrently with pain medications and/or other controlled substances educated on all medications, benefits, side effects and risk, and educated on depression, anxiety, and ADHD, mood d/o and educated on compliance of medications, metabolic and movement d/o education appointment is, continue therapy discussion with patient about course of treatment and patient instructions. education on serotonin syndrome SSRI/SNRI side effects discussed including but not limited to, gastric upset, nausea, vomiting, diarrhea and/or constipation, weight changes, sexual side effects including loss of libido, increased suicidal thoughts/behaviors in children and young adults, and serotonin syndrome. Medication Management and Follow-Up - Plan: - Schedule follow-up appointments every 1-3 months to monitor the patient's response to the medication regimen. - Reinforce the importance of avoiding recreational drug use due to potential neurotoxicity and interactions with prescribed medications. 08/20/2024 Encounter for screening for cardiovascular disorders (ICD-10 - Z13.6) 1. DEPRESSION Cymbalta 90 mg daily- PCP prescribed for depression and chronic pain 2. Anxiety Cymbalta 90 mg daily- PCP prescribed for depression and anxiety chronic pain 3. ADHD reviewed Crey[facility] testing Indicative ADHD Part A 08/14 Part B 01/20 ASRS 5 obtain results neuropsychological testing HX Wellbutrin ( does not tolerate severe dry mouth) Straterra 60 mg daily in am- reported not seeing a difference on rx tolerating rx no s/e Add Vyvanse 20 mg in am discuss rx and monitor B/P patient has HTN seeing PCP- starting B/P rx 08/28/24 discuss cardiovascualr risk HTN and no stimulates discuss non stimulates options educated on non-stimulate obtain labs PCP 4. elevated blood pressure - seen PCP and starting B/P rx 08/28/24 educated on healthy b/p 120/80 monitor b/p at home refer to PCP, Urgent care/ER heart healthy diet and excise limit salt intake limit soda intake and caffiene increase water DISCUSS Cardiovascular risk and HTN and no stimulates with HTN ADHD stimulates education- NO CANNABIS USE Discuss with patient risk of misuse, abuse, and addiction before prescribing stimulant medicines. [facility] [employer] patients not to share their prescribed stimulant with anyone else. Educate patients and their families on these serious risks, proper storage of the medicine, and proper disposal of any unused medicine. Educated patient will monitor Throughout treatment, regularly assess and monitor them for signs and symptoms of nonmedical use, addiction, and potential diversion, which may be evidenced by more frequent renewal. requests than warranted by the prescribed dosage. Random UDS [place] prescription reviewed local pharmacy in [place], no early refills on control substance educated on non-stimulate and stimulates Notes: BOXED WARNINGCaution with history of drug dependence or alcoholism. Marked tolerance and psychological dependence may result from chronic abusive use. Sree psychotic episodes may occur, especially with parenteral abuse. Careful supervision required for withdrawal from abusive use to avoid severe depression. Withdrawal following chronic use may unmask symptoms of underlying disorder that may require follow-up Educated patient unable to switch pharmacy or switch dosing for control substance once sent to pharmacy related to shortages or other reasons Discussed and educated pt regarding benzodiazepines are generally not intended for prolonged use and that use can cause tolerance, dependence, depression, and associated memory issues including dementias (this list is not exhaustive). Benzodiazepine use is generally not recommended concurrently with pain medications and/or other controlled substances educated on all medications, benefits, side effects and risk, and educated on depression, anxiety, and ADHD, mood d/o and educated on compliance of medications, metabolic and movement d/o education appointment is, continue therapy discussion with patient about course of treatment and patient instructions. education on serotonin syndrome SSRI/SNRI side effects discussed including but not limited to, gastric upset, nausea, vomiting, diarrhea and/or constipation, weight changes, sexual side effects including loss of libido, increased suicidal thoughts/behaviors in children and young adults, and serotonin syndrome. Medication Management and Follow-Up - Plan: - Schedule follow-up appointments every 1-3 months to monitor the patient's response to the medication regimen. - Reinforce the importance of avoiding recreational drug use due to potential neurotoxicity and interactions with prescribed medications. 06/08/2024 MDD (major depressive disorder), recurrent episode, mild (ICD-10 - F33.0) 1. DEPRESSION Cymbalta 90 mg daily- PCP prescribed for depression and chronic pain 2. Anxiety Cymbalta 90 mg daily- PCP prescribed for depression and anxiety chronic pain 3. ADHD Schedule Creyos testing obtain results neuropsychological testing ADHD stimulates education Discuss with patient risk of misuse, abuse, and addiction before prescribing stimulant medicines. [facility] [employer] patients not to share their prescribed stimulant with anyone else. Educate patients and their families on these serious risks, proper storage of the medicine, and proper disposal of any unused medicine. Educated patient will monitor Throughout treatment, regularly assess and monitor them for signs and symptoms of nonmedical use, addiction, and potential diversion, which may be evidenced by more frequent renewal. requests than warranted by the prescribed dosage. Random UDS [place] prescription reviewed local pharmacy in [place], no early refills on control substance educated on non-stimulate and stimulates 4. elevated blood pressure educated on healthy b/p 120/80 monitor b/p at home refer to PCP, Urgent care/ER heart healthy diet and excise limit salt intake limit soda intake and caffiene increase water Discussed and educated pt regarding benzodiazepines are generally not intended for prolonged use and that use can cause tolerance, dependence, depression, and associated memory issues including dementias (this list is not exhaustive). Benzodiazepine use is generally not recommended concurrently with pain medications and/or other controlled substances educated on all medications, benefits, side effects and risk, and educated on depression, anxiety, and ADHD, mood d/o and educated on compliance of medications, metabolic and movement d/o education appointment is, continue therapy discussion with patient about course of treatment and patient instructions. education on serotonin syndrome SSRI/SNRI side effects discussed including but not limited to, gastric upset, nausea, vomiting, diarrhea and/or constipation, weight changes, sexual side effects including loss of libido, increased suicidal thoughts/behaviors in children and young adults, and serotonin syndrome. Medication Management and Follow-Up - Plan: - Schedule follow-up appointments every 1-3 months to monitor the patient's response to the medication regimen. - Reinforce the importance of avoiding recreational drug use due to potential neurotoxicity and interactions with prescribed medications. 06/26/2024 Encounter for screening for cardiovascular disorders (ICD-10 - Z13.6) 1. DEPRESSION Cymbalta 90 mg daily- PCP prescribed for depression and chronic pain 2. Anxiety Cymbalta 90 mg daily- PCP prescribed for depression and anxiety chronic pain 3. ADHD reviewed Creyos testing Indicative ADHD Part A 08/14 Part B 01/20 ASRS 5 obtain results neuropsychological testing HX Wellbutrin ( does not tolerate severe dry mouth) Add Straterra 25 mg daily in am for 1 week then increase Straterra 40 mg daily in am patient has HTN and uncomtrolled currently and seeing PCP discuss cardiovascualr risk HTN and no stimulates discuss non stimulates options educated on non-stimulate obtain labs PCP 4. elevated blood pressure LAST 2 VISITS educated on healthy b/p 120/80 monitor b/p at home refer to PCP, Urgent care/ER heart healthy diet and excise limit salt intake limit soda intake and caffiene increase water Pateint not on B/P RX and seen PCP 06/05 and schedule to see PCP 12/03 - patient reported will call PCP today to be seen and discuss B/P sooner or Urgent care DISCUSS Cardiovascule risk and HTN and no stimulates with HTN discuss scheduling appt with PCP or may go to Urgent care for HTN, Discussed and educated pt regarding benzodiazepines are generally not intended for prolonged use and that use can cause tolerance, dependence, depression, and associated memory issues including dementias (this list is not exhaustive). Benzodiazepine use is generally not recommended concurrently with pain medications and/or other controlled substances educated on all medications, benefits, side effects and risk, and educated on depression, anxiety, and ADHD, mood d/o and educated on compliance of medications, metabolic and movement d/o education appointment is, continue therapy discussion with patient about course of treatment and patient instructions. education on serotonin syndrome SSRI/SNRI side effects discussed including but not limited to, gastric upset, nausea, vomiting, diarrhea and/or constipation, weight changes, sexual side effects including loss of libido, increased suicidal thoughts/behaviors in children and young adults, and serotonin syndrome. Medication Management and Follow-Up - Plan: - Schedule follow-up appointments every 1-3 months to monitor the patient's response to the medication regimen. - Reinforce the importance of avoiding recreational drug use due to potential neurotoxicity and interactions with prescribed medications. 06/26/2024 Dietary counseling and surveillance (ICD-10 - Z71.3) Learning About Low-Carbohydra te Diets material was published, Learning About Meal Planning for Diabetes material was published, Learning About Healthy Weight material was published, Learning About the Mediterranean Diet material was published, Learning About Low-Carbohydra te Foods material was published 1. DEPRESSION Cymbalta 90 mg daily- PCP prescribed for depression and chronic pain 2. Anxiety Cymbalta 90 mg daily- PCP prescribed for depression and anxiety chronic pain 3. ADHD reviewed Creyos testing Indicative ADHD Part A /6 Part B 01/20 ASRS 5 obtain results neuropsychological testing HX Wellbutrin ( does not tolerate severe dry mouth) Add Straterra 25 mg daily in am for 1 week then increase Straterra 40 mg daily in am patient has HTN and uncomtrolled currently and seeing PCP discuss cardiovascualr risk HTN and no stimulates discuss non stimulates options educated on non-stimulate obtain labs PCP 4. elevated blood pressure LAST 2 VISITS educated on healthy b/p 120/80 monitor b/p at home refer to PCP, Urgent care/ER heart healthy diet and excise limit salt intake limit soda intake and caffiene increase water Pateint not on B/P RX and seen PCP 06/05 and schedule to see PCP 12/03 - patient reported will call PCP today to be seen and discuss B/P sooner or Urgent care DISCUSS Cardiovascule risk and HTN and no stimulates with HTN discuss scheduling appt with PCP or may go to Urgent care for HTN, Discussed and educated pt regarding benzodiazepines are generally not intended for prolonged use and that use can cause tolerance, dependence, depression, and associated memory issues including dementias (this list is not exhaustive). Benzodiazepine use is generally not recommended concurrently with pain medications and/or other controlled substances educated on all medications, benefits, side effects and risk, and educated on depression, anxiety, and ADHD, mood d/o and educated on compliance of medications, metabolic and movement d/o education appointment is, continue therapy discussion with patient about course of treatment and patient instructions. education on serotonin syndrome SSRI/SNRI side effects discussed including but not limited to, gastric upset, nausea, vomiting, diarrhea and/or constipation, weight changes, sexual side effects including loss of libido, increased suicidal thoughts/behaviors in children and young adults, and serotonin syndrome. Medication Management and Follow-Up - Plan: - Schedule follow-up appointments every 1-3 months to monitor the patient's response to the medication regimen. - Reinforce the importance of avoiding recreational drug use due to potential neurotoxicity and interactions with prescribed medications. 06/08/2024 SHAYNE (generalized anxiety disorder) (ICD-10 - F41.1) 1. DEPRESSION Cymbalta 90 mg daily- PCP prescribed for depression and chronic pain 2. Anxiety Cymbalta 90 mg daily- PCP prescribed for depression and anxiety chronic pain 3. ADHD Schedule Creyos testing obtain results neuropsychological testing ADHD stimulates education Discuss with patient risk of misuse, abuse, and addiction before prescribing stimulant medicines. [facility] [employer] patients not to share their prescribed stimulant with anyone else. Educate patients and their families on these serious risks, proper storage of the medicine, and proper disposal of any unused medicine. Educated patient will monitor Throughout treatment, regularly assess and monitor them for signs and symptoms of nonmedical use, addiction, and potential diversion, which may be evidenced by more frequent renewal. requests than warranted by the prescribed dosage. Random UDS [place] prescription reviewed local pharmacy in [place], no early refills on control substance educated on non-stimulate and stimulates 4. elevated blood pressure educated on healthy b/p 120/80 monitor b/p at home refer to PCP, Urgent care/ER heart healthy diet and excise limit salt intake limit soda intake and caffiene increase water Discussed and educated pt regarding benzodiazepines are generally not intended for prolonged use and that use can cause tolerance, dependence, depression, and associated memory issues including dementias (this list is not exhaustive). Benzodiazepine use is generally not recommended concurrently with pain medications and/or other controlled substances educated on all medications, benefits, side effects and risk, and educated on depression, anxiety, and ADHD, mood d/o and educated on compliance of medications, metabolic and movement d/o education appointment is, continue therapy discussion with patient about course of treatment and patient instructions. education on serotonin syndrome SSRI/SNRI side effects discussed including but not limited to, gastric upset, nausea, vomiting, diarrhea and/or constipation, weight changes, sexual side effects including loss of libido, increased suicidal thoughts/behaviors in children and young adults, and serotonin syndrome. Medication Management and Follow-Up - Plan: - Schedule follow-up appointments every 1-3 months to monitor the patient's response to the medication regimen. - Reinforce the importance of avoiding recreational drug use due to potential neurotoxicity and interactions with prescribed medications. 07/24/2024 Encounter for screening for cardiovascular disorders (ICD-10 - Z13.6) 1. DEPRESSION Cymbalta 90 mg daily- PCP prescribed for depression and chronic pain 2. Anxiety Cymbalta 90 mg daily- PCP prescribed for depression and anxiety chronic pain 3. ADHD reviewed Creyos testing Indicative ADHD Part A 08/14 Part B 01/20 ASRS 5 obtain results neuropsychological testing HX Wellbutrin ( does not tolerate severe dry mouth) increase Straterra 60 mg daily in am- tolerating rx no s/e patient has HTN and uncomtrolled currently and seeing PCP discuss cardiovascualr risk HTN and no stimulates discuss non stimulates options educated on non-stimulate obtain labs PCP 4. elevated blood pressure LAST 2 VISITS educated on healthy b/p 120/80 monitor b/p at home refer to PCP, Urgent care/ER heart healthy diet and excise limit salt intake limit soda intake and caffiene increase water Pateint not on B/P RX and seen PCP 06/05 and schedule to see PCP 08/03 - patient reported fabien monitor B/P and document BP for PCP and may start B/P rx with PCP next week appt, DISCUSS Cardiovascular risk and HTN and no stimulates with HTN Discussed and educated pt regarding benzodiazepines are generally not intended for prolonged use and that use can cause tolerance, dependence, depression, and associated memory issues including dementias (this list is not exhaustive). Benzodiazepine use is generally not recommended concurrently with pain medications and/or other controlled substances educated on all medications, benefits, side effects and risk, and educated on depression, anxiety, and ADHD, mood d/o and educated on compliance of medications, metabolic and movement d/o education appointment is, continue therapy discussion with patient about course of treatment and patient instructions. education on serotonin syndrome SSRI/SNRI side effects discussed including but not limited to, gastric upset, nausea, vomiting, diarrhea and/or constipation, weight changes, sexual side effects including loss of libido, increased suicidal thoughts/behaviors in children and young adults, and serotonin syndrome. Medication Management and Follow-Up - Plan: - Schedule follow-up appointments every 1-3 months to monitor the patient's response to the medication regimen. - Reinforce the importance of avoiding recreational drug use due to potential neurotoxicity and interactions with prescribed medications. 08/20/2024 Dietary counseling and surveillance (ICD-10 - Z71.3) Learning About Low-Carbohydra te Diets material was published, Learning About Meal Planning for Diabetes material was published, Learning About Healthy Weight material was published, Learning About the Mediterranean Diet material was published, Learning About Low-Carbohydra te Foods material was published, Counting Carbohydrates for Diabetes: Care Instructions material was published, Low Sodium Diet (2,000 Milligram): Care Instructions material was published, Learning About Low-Fat Eating material was published, Learning About Low-Carbohydra te Foods material was published, Learning About Healthy Weight material was published 1. DEPRESSION Cymbalta 90 mg daily- PCP prescribed for depression and chronic pain 2. Anxiety Cymbalta 90 mg daily- PCP prescribed for depression and anxiety chronic pain 3. ADHD reviewed Creyos testing Indicative ADHD Part A 08/14 Part B 01/20 ASRS 5 obtain results neuropsychological testing HX Wellbutrin ( does not tolerate severe dry mouth) Straterra 60 mg daily in am- reported not seeing a difference on rx tolerating rx no s/e Add Vyvanse 20 mg in am discuss rx and monitor B/P patient has HTN seeing PCP- starting B/P rx 08/28/24 discuss cardiovascualr risk HTN and no stimulates discuss non stimulates options educated on non-stimulate obtain labs PCP 4. elevated blood pressure - seen PCP and starting B/P rx 08/28/24 educated on healthy b/p 120/80 monitor b/p at home refer to PCP, Urgent care/ER heart healthy diet and excise limit salt intake limit soda intake and caffiene increase water DISCUSS Cardiovascular risk and HTN and no stimulates with HTN ADHD stimulates education- NO CANNABIS USE Discuss with patient risk of misuse, abuse, and addiction before prescribing stimulant medicines. [facility] [employer] patients not to share their prescribed stimulant with anyone else. Educate patients and their families on these serious risks, proper storage of the medicine, and proper disposal of any unused medicine. Educated patient will monitor Throughout treatment, regularly assess and monitor them for signs and symptoms of nonmedical use, addiction, and potential diversion, which may be evidenced by more frequent renewal. requests than warranted by the prescribed dosage. Random UDS [place] prescription reviewed local pharmacy in [facility], no early refills on control substance educated on non-stimulate and stimulates Notes: BOXED WARNINGCaution with history of drug dependence or alcoholism. Marked tolerance and psychological dependence may result from chronic abusive use. Sree psychotic episodes may occur, especially with parenteral abuse. Careful supervision required for withdrawal from abusive use to avoid severe depression. Withdrawal following chronic use may unmask symptoms of underlying disorder that may require follow-up Educated patient unable to switch pharmacy or switch dosing for control substance once sent to pharmacy related to shortages or other reasons Discussed and educated pt regarding benzodiazepines are generally not intended for prolonged use and that use can cause tolerance, dependence, depression, and associated memory issues including dementias (this list is not exhaustive). Benzodiazepine use is generally not recommended concurrently with pain medications and/or other controlled substances educated on all medications, benefits, side effects and risk, and educated on depression, anxiety, and ADHD, mood d/o and educated on compliance of medications, metabolic and movement d/o education appointment is, continue therapy discussion with patient about course of treatment and patient instructions. education on serotonin syndrome SSRI/SNRI side effects discussed including but not limited to, gastric upset, nausea, vomiting, diarrhea and/or constipation, weight changes, sexual side effects including loss of libido, increased suicidal thoughts/behaviors in children and young adults, and serotonin syndrome. Medication Management and Follow-Up - Plan: - Schedule follow-up appointments every 1-3 months to monitor the patient's response to the medication regimen. - Reinforce the importance of avoiding recreational drug use due to potential neurotoxicity and interactions with prescribed medications. 09/20/2024 Encounter for screening for cardiovascular disorders (ICD-10 - Z13.6) 1. DEPRESSION Cymbalta 90 mg daily- PCP prescribed for depression and chronic pain 2. Anxiety Cymbalta 90 mg daily- PCP prescribed for depression and anxiety chronic pain 3. ADHD reviewed Creyos testing Indicative ADHD Part A 08/14 Part B 01/20 ASRS 5 obtain results neuropsychological testing HX Wellbutrin ( does not tolerate severe dry mouth) Straterra 60 mg daily in am- tolerating rx no s/e Vyvanse 20 mg in am discuss rx and monitor B/P patient has HTN seeing PCP- B/P rx 08/28/24 discuss cardiovascualr risk HTN and no stimulates discuss non stimulates options educated on non-stimulate obtain labs PCP 4. elevated blood pressure - seen PCP and starting B/P rx 08/28/24 educated on healthy b/p 120/80 monitor b/p at home refer to PCP, Urgent care/ER heart healthy diet and excise limit salt intake limit soda intake and caffiene increase water DISCUSS Cardiovascular risk and HTN and no stimulates with HTN ADHD stimulates education- NO CANNABIS USE Discuss with patient risk of misuse, abuse, and addiction before prescribing stimulant medicines. [facility] [employer] patients not to share their prescribed stimulant with anyone else. Educate patients and their families on these serious risks, proper storage of the medicine, and proper disposal of any unused medicine. Educated patient will monitor Throughout treatment, regularly assess and monitor them for signs and symptoms of nonmedical use, addiction, and potential diversion, which may be evidenced by more frequent renewal. requests than warranted by the prescribed dosage. Random S [place] prescription reviewed local pharmacy in [facility], no early refills on control substance educated on non-stimulate and stimulates Notes: BOXED WARNINGCaution with history of drug dependence or alcoholism. Marked tolerance and psychological dependence may result from chronic abusive use. Sree psychotic episodes may occur, especially with parenteral abuse. Careful supervision required for withdrawal from abusive use to avoid severe depression. Withdrawal following chronic use may unmask symptoms of underlying disorder that may require follow-up Educated patient unable to switch pharmacy or switch dosing for control substance once sent to pharmacy related to shortages or other reasons Discussed and educated pt regarding benzodiazepines are generally not intended for prolonged use and that use can cause tolerance, dependence, depression, and associated memory issues including dementias (this list is not exhaustive). Benzodiazepine use is generally not recommended concurrently with pain medications and/or other controlled substances educated on all medications, benefits, side effects and risk, and educated on depression, anxiety, and ADHD, mood d/o and educated on compliance of medications, metabolic and movement d/o education appointment is, continue therapy discussion with patient about course of treatment and patient instructions. education on serotonin syndrome SSRI/SNRI side effects discussed including but not limited to, gastric upset, nausea, vomiting, diarrhea and/or constipation, weight changes, sexual side effects including loss of libido, increased suicidal thoughts/behaviors in children and young adults, and serotonin syndrome. Medication Management and Follow-Up - Plan: - Schedule follow-up appointments every 1-3 months to monitor the patient's response to the medication regimen. - Reinforce the importance of avoiding recreational drug use due to potential neurotoxicity and interactions with prescribed medications. 12/21/2024 Dietary counseling and surveillance (ICD-10 - Z71.3) Learning About Low-Carbohydra te Diets material was published, Learning About Meal Planning for Diabetes material was published, Learning About Healthy Weight material was published, Learning About the Mediterranean Diet material was published, Learning About Low-Carbohydra te Foods material was published, Counting Carbohydrates for Diabetes: Care Instructions material was published, Low Sodium Diet (2,000 Milligram): Care Instructions material was published, Learning About Low-Fat Eating material was published, Learning About Low-Carbohydra te Foods material was published, Learning About Healthy Weight material was published 1. DEPRESSION Cymbalta 90 mg daily- PCP prescribed for depression and chronic pain 2. Anxiety Cymbalta 90 mg daily- PCP prescribed for depression and anxiety chronic pain 3. ADHD reviewed [facility] testing Indicative ADHD Part A /6 Part B 01/20 ASRS 5 obtain results neuropsychological testing HX Wellbutrin ( does not tolerate severe dry mouth) decrease Straterra 40 mg daily in am- for 1 week then stop tolerating rx no s/e Vyvanse 20 mg in am for 2 weeks then follow up discuss rx and monitor B/P and HR at home next weeks and bring into office and see PCP patient has HTN seeing PCP- B/P rx 08/28/24 discuss cardiovascualr risk HTN and no stimulates discuss non stimulates options educated on non-stimulate obtain labs PCP 4. elevated blood pressure - seen PCP and starting B/P rx 5/20/25 refer to see PCP with B/P and HR educated on healthy b/p 120/80 monitor b/p at home refer to PCP, Urgent care/ER heart healthy diet and excise limit salt intake limit soda intake and caffiene increase water DISCUSS Cardiovascular risk and HTN and no stimulates with HTN ADHD stimulates education- NO CANNABIS USE Discuss with patient risk of misuse, abuse, and addiction before prescribing stimulant medicines. [facility] patients not to share their prescribed stimulant with anyone else. Educate patients and their families on these serious risks, proper storage of the medicine, and proper disposal of any unused medicine. Educated patient will monitor Throughout treatment, regularly assess and monitor them for signs and symptoms of nonmedical use, addiction, and potential diversion, which may be evidenced by more frequent renewal. requests than warranted by the prescribed dosage. Random UDS [place] prescription reviewed local pharmacy in [facility], no early refills on control substance educated on non-stimulate and stimulates Notes: BOXED WARNINGCaution with history of drug dependence or alcoholism. Marked tolerance and psychological dependence may result from chronic abusive use. Sree psychotic episodes may occur, especially with parenteral abuse. Careful supervision required for withdrawal from abusive use to avoid severe depression. Withdrawal following chronic use may unmask symptoms of underlying disorder that may require follow-up 5. Insomnia discuss and educated on Adding Trazodone 50 mg at bedtime Sleep Hygeine- - KEEP YOUR BEDROOM DARK - GET LOTS OF NATURAL LIGHT IN THE MORNING. - DON'T WORK ON YOUR COMPUTER OR PHONE LATE AT NIGHT. - AVOID NAPS DURING THE DAY. - NO CAFFEINE 3 HOURS OR MORE AFTER WAKE UP TIME. - ONLY USE YOUR BED FOR SLEEPING - GET A RELAXATION ROUTINE BEFORE BED. - IF YOU CAN'T GET TO SLEEP AFTER 15 TO 30 MINUTES GET OUT OF BED AND DO SOMETHING RELAXING. - DON'T DRINK ALCOHOL IN THE EVENING or limit alcohol to 1 drink. Discussed and educated pt regarding benzodiazepines are generally not intended for prolonged use and that use can cause tolerance, dependence, depression, and associated memory issues including dementias (this list is not exhaustive). Benzodiazepine use is generally not recommended concurrently with pain medications and/or other controlled substances educated on all medications, benefits, side effects and risk, and educated on depression, anxiety, and ADHD, mood d/o and educated on compliance of medications, metabolic and movement d/o education appointment is, continue therapy discussion with patient about course of treatment and patient instructions. education on serotonin syndrome SSRI/SNRI side effects discussed including but not limited to, gastric upset, nausea, vomiting, diarrhea and/or constipation, weight changes, sexual side effects including loss of libido, increased suicidal thoughts/behaviors in children and young adults, and serotonin syndrome. Medication Management and Follow-Up - Plan: - Schedule follow-up appointments every 1-3 months to monitor the patient's response to the medication regimen. - Reinforce the importance of avoiding recreational drug use due to potential neurotoxicity and interactions with prescribed medications. 01/04/2025 Insomnia (ICD-10 - G47.00) 1. DEPRESSION Cymbalta 90 mg daily- PCP prescribed for depression and chronic pain 2. Anxiety Cymbalta 90 mg daily- PCP prescribed for depression and anxiety chronic pain 3. ADHD reviewed [facility] testing Indicative ADHD Part A 08/14 Part B 01/20 ASRS 5 obtain results neuropsychological testing HX Wellbutrin ( does not tolerate severe dry mouth) tolerating rx no s/e D/C Vyvanse 20 mg in am - CONITNUE TO HAVE ELEVATED B/P and HR patient will see PCP or Urgent care today restart Straterra 40 mg in am discuss rx and monitor B/P and HR patient has HTN PCP- B/P rx 08/28/24 discuss cardiovascualr risk HTN and no stimulates discuss non stimulates options educated on non-stimulate obtain labs PCP 4. elevated blood pressure - seen PCP and starting B/P rx 08/28/24 refer to see PCP with B/P and HR educated on healthy b/p 120/80 monitor b/p at home refer to PCP, Urgent care/ER heart healthy diet and excise limit salt intake limit soda intake and caffiene increase water DISCUSS Cardiovascular risk and HTN and no stimulates with HTN- will d/c Vyvanse r/t elevated B/P will see PCP/Urgent care today for B/P REVIEWED B/P reading patient taken at home over last 2 weeks ADHD stimulates education- NO CANNABIS USE Discuss with patient risk of misuse, abuse, and addiction before prescribing stimulant medicines. [facility] [employer] patients not to share their prescribed stimulant with anyone else. Educate patients and their families on these serious risks, proper storage of the medicine, and proper disposal of any unused medicine. Educated patient will monitor Throughout treatment, regularly assess and monitor them for signs and symptoms of nonmedical use, addiction, and potential diversion, which may be evidenced by more frequent renewal. requests than warranted by the prescribed dosage. Random UDS [place] prescription reviewed local pharmacy in [place], no early refills on control substance educated on non-stimulate and stimulates Notes: BOXED WARNINGCaution with history of drug dependence or alcoholism. Marked tolerance and psychological dependence may result from chronic abusive use. Sree psychotic episodes may occur, especially with parenteral abuse. Careful supervision required for withdrawal from abusive use to avoid severe depression. Withdrawal following chronic use may unmask symptoms of underlying disorder that may require follow-up 5. Insomnia- improved on rx discuss and educated on all rx Trazodone 50 mg at bedtime Sleep Hygeine- - KEEP YOUR BEDROOM DARK - GET LOTS OF NATURAL LIGHT IN THE MORNING. - DON'T WORK ON YOUR COMPUTER OR PHONE LATE AT NIGHT. - AVOID NAPS DURING THE DAY. - NO CAFFEINE 3 HOURS OR MORE AFTER WAKE UP TIME. - ONLY USE YOUR BED FOR SLEEPING - GET A RELAXATION ROUTINE BEFORE BED. - IF YOU CAN'T GET TO SLEEP AFTER 15 TO 30 MINUTES GET OUT OF BED AND DO SOMETHING RELAXING. - DON'T DRINK ALCOHOL IN THE EVENING or limit alcohol to 1 drink. Discussed and educated pt regarding benzodiazepines are generally not intended for prolonged use and that use can cause tolerance, dependence, depression, and associated memory issues including dementias (this list is not exhaustive). Benzodiazepine use is generally not recommended concurrently with pain medications and/or other controlled substances educated on all medications, benefits, side effects and risk, and educated on depression, anxiety, and ADHD, mood d/o and educated on compliance of medications, metabolic and movement d/o education appointment is, continue therapy discussion with patient about course of treatment and patient instructions. education on serotonin syndrome SSRI/SNRI side effects discussed including but not limited to, gastric upset, nausea, vomiting, diarrhea and/or constipation, weight changes, sexual side effects including loss of libido, increased suicidal thoughts/behaviors in children and young adults, and serotonin syndrome. Medication Management and Follow-Up - Plan: - Schedule follow-up appointments every 1-3 months to monitor the patient's response to the medication regimen. - Reinforce the importance of avoiding recreational drug use due to potential neurotoxicity and interactions with prescribed medications. 12/21/2024 Elevated blood pressure reading (ICD-10 - R03.0) Learning About High Blood Pressure material was published, High Blood Pressure: Care Instructions material was published, Kidney Disease and High Blood Pressure: Care Instructions material was published, High Blood Pressure: Care Instructions material was published, Learning About High Blood Pressure material was published 1. DEPRESSION Cymbalta 90 mg daily- PCP prescribed for depression and chronic pain 2. Anxiety Cymbalta 90 mg daily- PCP prescribed for depression and anxiety chronic pain 3. ADHD reviewed [facility] testing Indicative ADHD Part A 6 Part B 01/20 ASRS 5 obtain results neuropsychological testing HX Wellbutrin ( does not tolerate severe dry mouth) decrease Straterra 40 mg daily in am- for 1 week then stop tolerating rx no s/e Vyvanse 20 mg in am for 2 weeks then follow up discuss rx and monitor B/P and HR at home next weeks and bring into office and see PCP patient has HTN seeing PCP- B/P rx 08/28/24 discuss cardiovascualr risk HTN and no stimulates discuss non stimulates options educated on non-stimulate obtain labs PCP 4. elevated blood pressure - seen PCP and starting B/P rx 08/28/24 refer to see PCP with B/P and HR educated on healthy b/p 120/80 monitor b/p at home refer to PCP, Urgent care/ER heart healthy diet and excise limit salt intake limit soda intake and caffiene increase water DISCUSS Cardiovascular risk and HTN and no stimulates with HTN ADHD stimulates education- NO CANNABIS USE Discuss with patient risk of misuse, abuse, and addiction before prescribing stimulant medicines. [facility] [employer] patients not to share their prescribed stimulant with anyone else. Educate patients and their families on these serious risks, proper storage of the medicine, and proper disposal of any unused medicine. Educated patient will monitor Throughout treatment, regularly assess and monitor them for signs and symptoms of nonmedical use, addiction, and potential diversion, which may be evidenced by more frequent renewal. requests than warranted by the prescribed dosage. Random UDS [place] prescription reviewed local pharmacy in [place], no early refills on control substance educated on non-stimulate and stimulates Notes: BOXED WARNINGCaution with history of drug dependence or alcoholism. Marked tolerance and psychological dependence may result from chronic abusive use. Sree psychotic episodes may occur, especially with parenteral abuse. Careful supervision required for withdrawal from abusive use to avoid severe depression. Withdrawal following chronic use may unmask symptoms of underlying disorder that may require follow-up 5. Insomnia discuss and educated on Adding Trazodone 50 mg at bedtime Sleep Hygeine- - KEEP YOUR BEDROOM DARK - GET LOTS OF NATURAL LIGHT IN THE MORNING. - DON'T WORK ON YOUR COMPUTER OR PHONE LATE AT NIGHT. - AVOID NAPS DURING THE DAY. - NO CAFFEINE 3 HOURS OR MORE AFTER WAKE UP TIME. - ONLY USE YOUR BED FOR SLEEPING - GET A RELAXATION ROUTINE BEFORE BED. - IF YOU CAN'T GET TO SLEEP AFTER 15 TO 30 MINUTES GET OUT OF BED AND DO SOMETHING RELAXING. - DON'T DRINK ALCOHOL IN THE EVENING or limit alcohol to 1 drink. Discussed and educated pt regarding benzodiazepines are generally not intended for prolonged use and that use can cause tolerance, dependence, depression, and associated memory issues including dementias (this list is not exhaustive). Benzodiazepine use is generally not recommended concurrently with pain medications and/or other controlled substances educated on all medications, benefits, side effects and risk, and educated on depression, anxiety, and ADHD, mood d/o and educated on compliance of medications, metabolic and movement d/o education appointment is, continue therapy discussion with patient about course of treatment and patient instructions. education on serotonin syndrome SSRI/SNRI side effects discussed including but not limited to, gastric upset, nausea, vomiting, diarrhea and/or constipation, weight changes, sexual side effects including loss of libido, increased suicidal thoughts/behaviors in children and young adults, and serotonin syndrome. Medication Management and Follow-Up - Plan: - Schedule follow-up appointments every 1-3 months to monitor the patient's response to the medication regimen. - Reinforce the importance of avoiding recreational drug use due to potential neurotoxicity and interactions with prescribed medications. 09/20/2024 Dietary counseling and surveillance (ICD-10 - Z71.3) Learning About Low-Carbohydra te Diets material was published, Learning About Meal Planning for Diabetes material was published, Learning About Healthy Weight material was published, Learning About the Mediterranean Diet material was published, Learning About Low-Carbohydra te Foods material was published, Counting Carbohydrates for Diabetes: Care Instructions material was published, Low Sodium Diet (2,000 Milligram): Care Instructions material was published, Learning About Low-Fat Eating material was published, Learning About Low-Carbohydra te Foods material was published, Learning About Healthy Weight material was published 1. DEPRESSION Cymbalta 90 mg daily- PCP prescribed for depression and chronic pain 2. Anxiety Cymbalta 90 mg daily- PCP prescribed for depression and anxiety chronic pain 3. ADHD reviewed [facility] testing Indicative ADHD Part A 08/14 Part B 01/20 ASRS 5 obtain results neuropsychological testing HX Wellbutrin ( does not tolerate severe dry mouth) Straterra 60 mg daily in am- tolerating rx no s/e Vyvanse 20 mg in am discuss rx and monitor B/P patient has HTN seeing PCP- B/P rx 08/28/24 discuss cardiovascualr risk HTN and no stimulates discuss non stimulates options educated on non-stimulate obtain labs PCP 4. elevated blood pressure - seen PCP and starting B/P rx 08/28/24 educated on healthy b/p 120/80 monitor b/p at home refer to PCP, Urgent care/ER heart healthy diet and excise limit salt intake limit soda intake and caffiene increase water DISCUSS Cardiovascular risk and HTN and no stimulates with HTN ADHD stimulates education- NO CANNABIS USE Discuss with patient risk of misuse, abuse, and addiction before prescribing stimulant medicines. [facility] [employer] patients not to share their prescribed stimulant with anyone else. Educate patients and their families on these serious risks, proper storage of the medicine, and proper disposal of any unused medicine. Educated patient will monitor Throughout treatment, regularly assess and monitor them for signs and symptoms of nonmedical use, addiction, and potential diversion, which may be evidenced by more frequent renewal. requests than warranted by the prescribed dosage. Random S [place] prescription reviewed local pharmacy in [facility], no early refills on control substance educated on non-stimulate and stimulates Notes: BOXED WARNINGCaution with history of drug dependence or alcoholism. Marked tolerance and psychological dependence may result from chronic abusive use. Sree psychotic episodes may occur, especially with parenteral abuse. Careful supervision required for withdrawal from abusive use to avoid severe depression. Withdrawal following chronic use may unmask symptoms of underlying disorder that may require follow-up Educated patient unable to switch pharmacy or switch dosing for control substance once sent to pharmacy related to shortages or other reasons Discussed and educated pt regarding benzodiazepines are generally not intended for prolonged use and that use can cause tolerance, dependence, depression, and associated memory issues including dementias (this list is not exhaustive). Benzodiazepine use is generally not recommended concurrently with pain medications and/or other controlled substances educated on all medications, benefits, side effects and risk, and educated on depression, anxiety, and ADHD, mood d/o and educated on compliance of medications, metabolic and movement d/o education appointment is, continue therapy discussion with patient about course of treatment and patient instructions. education on serotonin syndrome SSRI/SNRI side effects discussed including but not limited to, gastric upset, nausea, vomiting, diarrhea and/or constipation, weight changes, sexual side effects including loss of libido, increased suicidal thoughts/behaviors in children and young adults, and serotonin syndrome. Medication Management and Follow-Up - Plan: - Schedule follow-up appointments every 1-3 months to monitor the patient's response to the medication regimen. - Reinforce the importance of avoiding recreational drug use due to potential neurotoxicity and interactions with prescribed medications. 08/20/2024 Elevated blood pressure reading (ICD-10 - R03.0) Learning About High Blood Pressure material was published, High Blood Pressure: Care Instructions material was published, Kidney Disease and High Blood Pressure: Care Instructions material was published, High Blood Pressure: Care Instructions material was published, Learning About High Blood Pressure material was published 1. DEPRESSION Cymbalta 90 mg daily- PCP prescribed for depression and chronic pain 2. Anxiety Cymbalta 90 mg daily- PCP prescribed for depression and anxiety chronic pain 3. ADHD reviewed [facility]os testing Indicative ADHD Part A 08/14 Part B 01/20 ASRS 5 obtain results neuropsychological testing HX Wellbutrin ( does not tolerate severe dry mouth) Straterra 60 mg daily in am- reported not seeing a difference on rx tolerating rx no s/e Add Vyvanse 20 mg in am discuss rx and monitor B/P patient has HTN seeing PCP- starting B/P rx 08/28/24 discuss cardiovascualr risk HTN and no stimulates discuss non stimulates options educated on non-stimulate obtain labs PCP 4. elevated blood pressure - seen PCP and starting B/P rx 08/28/24 educated on healthy b/p 120/80 monitor b/p at home refer to PCP, Urgent care/ER heart healthy diet and excise limit salt intake limit soda intake and caffiene increase water DISCUSS Cardiovascular risk and HTN and no stimulates with HTN ADHD stimulates education- NO CANNABIS USE Discuss with patient risk of misuse, abuse, and addiction before prescribing stimulant medicines. [facility] [employer] patients not to share their prescribed stimulant with anyone else. Educate patients and their families on these serious risks, proper storage of the medicine, and proper disposal of any unused medicine. Educated patient will monitor Throughout treatment, regularly assess and monitor them for signs and symptoms of nonmedical use, addiction, and potential diversion, which may be evidenced by more frequent renewal. requests than warranted by the prescribed dosage. Random UDS [place] prescription reviewed local pharmacy in [place], no early refills on control substance educated on non-stimulate and stimulates Notes: BOXED WARNINGCaution with history of drug dependence or alcoholism. Marked tolerance and psychological dependence may result from chronic abusive use. Sree psychotic episodes may occur, especially with parenteral abuse. Careful supervision required for withdrawal from abusive use to avoid severe depression. Withdrawal following chronic use may unmask symptoms of underlying disorder that may require follow-up Educated patient unable to switch pharmacy or switch dosing for control substance once sent to pharmacy related to shortages or other reasons Discussed and educated pt regarding benzodiazepines are generally not intended for prolonged use and that use can cause tolerance, dependence, depression, and associated memory issues including dementias (this list is not exhaustive). Benzodiazepine use is generally not recommended concurrently with pain medications and/or other controlled substances educated on all medications, benefits, side effects and risk, and educated on depression, anxiety, and ADHD, mood d/o and educated on compliance of medications, metabolic and movement d/o education appointment is, continue therapy discussion with patient about course of treatment and patient instructions. education on serotonin syndrome SSRI/SNRI side effects discussed including but not limited to, gastric upset, nausea, vomiting, diarrhea and/or constipation, weight changes, sexual side effects including loss of libido, increased suicidal thoughts/behaviors in children and young adults, and serotonin syndrome. Medication Management and Follow-Up - Plan: - Schedule follow-up appointments every 1-3 months to monitor the patient's response to the medication regimen. - Reinforce the importance of avoiding recreational drug use due to potential neurotoxicity and interactions with prescribed medications. 07/24/2024 Dietary counseling and surveillance (ICD-10 - Z71.3) Learning About Low-Carbohydra te Diets material was published, Learning About Meal Planning for Diabetes material was published, Learning About Healthy Weight material was published, Learning About the Mediterranean Diet material was published, Learning About Low-Carbohydra te Foods material was published, Counting Carbohydrates for Diabetes: Care Instructions material was published, Low Sodium Diet (2,000 Milligram): Care Instructions material was published, Learning About Low-Fat Eating material was published, Learning About Low-Carbohydra te Foods material was published, Learning About Healthy Weight material was published 1. DEPRESSION Cymbalta 90 mg daily- PCP prescribed for depression and chronic pain 2. Anxiety Cymbalta 90 mg daily- PCP prescribed for depression and anxiety chronic pain 3. ADHD reviewed [facility] testing Indicative ADHD Part A /6 Part B 01/20 ASRS 5 obtain results neuropsychological testing HX Wellbutrin ( does not tolerate severe dry mouth) increase Straterra 60 mg daily in am- tolerating rx no s/e patient has HTN and uncomtrolled currently and seeing PCP discuss cardiovascualr risk HTN and no stimulates discuss non stimulates options educated on non-stimulate obtain labs PCP 4. elevated blood pressure LAST 2 VISITS educated on healthy b/p 120/80 monitor b/p at home refer to PCP, Urgent care/ER heart healthy diet and excise limit salt intake limit soda intake and caffiene increase water Pateint not on B/P RX and seen PCP 06/05 and schedule to see PCP 08/03 - patient reported fabien monitor B/P and document BP for PCP and may start B/P rx with PCP next week appt, DISCUSS Cardiovascular risk and HTN and no stimulates with HTN Discussed and educated pt regarding benzodiazepines are generally not intended for prolonged use and that use can cause tolerance, dependence, depression, and associated memory issues including dementias (this list is not exhaustive). Benzodiazepine use is generally not recommended concurrently with pain medications and/or other controlled substances educated on all medications, benefits, side effects and risk, and educated on depression, anxiety, and ADHD, mood d/o and educated on compliance of medications, metabolic and movement d/o education appointment is, continue therapy discussion with patient about course of treatment and patient instructions. education on serotonin syndrome SSRI/SNRI side effects discussed including but not limited to, gastric upset, nausea, vomiting, diarrhea and/or constipation, weight changes, sexual side effects including loss of libido, increased suicidal thoughts/behaviors in children and young adults, and serotonin syndrome. Medication Management and Follow-Up - Plan: - Schedule follow-up appointments every 1-3 months to monitor the patient's response to the medication regimen. - Reinforce the importance of avoiding recreational drug use due to potential neurotoxicity and interactions with prescribed medications. 06/26/2024 Elevated blood pressure reading (ICD-10 - R03.0) Learning About High Blood Pressure material was published, High Blood Pressure: Care Instructions material was published, Kidney Disease and High Blood Pressure: Care Instructions material was published 1. DEPRESSION Cymbalta 90 mg daily- PCP prescribed for depression and chronic pain 2. Anxiety Cymbalta 90 mg daily- PCP prescribed for depression and anxiety chronic pain 3. ADHD reviewed Crey[facility] testing Indicative ADHD Part A 6 Part B 01/20 ASRS 5 obtain results neuropsychological testing HX Wellbutrin ( does not tolerate severe dry mouth) Add Straterra 25 mg daily in am for 1 week then increase Straterra 40 mg daily in am patient has HTN and uncomtrolled currently and seeing PCP discuss cardiovascualr risk HTN and no stimulates discuss non stimulates options educated on non-stimulate obtain labs PCP 4. elevated blood pressure LAST 2 VISITS educated on healthy b/p 120/80 monitor b/p at home refer to PCP, Urgent care/ER heart healthy diet and excise limit salt intake limit soda intake and caffiene increase water Pateint not on B/P RX and seen PCP 06/05 and schedule to see PCP 12/03 - patient reported will call PCP today to be seen and discuss B/P sooner or Urgent care DISCUSS Cardiovascule risk and HTN and no stimulates with HTN discuss scheduling appt with PCP or may go to Urgent care for HTN, Discussed and educated pt regarding benzodiazepines are generally not intended for prolonged use and that use can cause tolerance, dependence, depression, and associated memory issues including dementias (this list is not exhaustive). Benzodiazepine use is generally not recommended concurrently with pain medications and/or other controlled substances educated on all medications, benefits, side effects and risk, and educated on depression, anxiety, and ADHD, mood d/o and educated on compliance of medications, metabolic and movement d/o education appointment is, continue therapy discussion with patient about course of treatment and patient instructions. education on serotonin syndrome SSRI/SNRI side effects discussed including but not limited to, gastric upset, nausea, vomiting, diarrhea and/or constipation, weight changes, sexual side effects including loss of libido, increased suicidal thoughts/behaviors in children and young adults, and serotonin syndrome. Medication Management and Follow-Up - Plan: - Schedule follow-up appointments every 1-3 months to monitor the patient's response to the medication regimen. - Reinforce the importance of avoiding recreational drug use due to potential neurotoxicity and interactions with prescribed medications. 06/08/2024 ADHD (attention deficit hyperactivity disorder), combined type (ICD-10 - F90.2) 1. DEPRESSION Cymbalta 90 mg daily- PCP prescribed for depression and chronic pain 2. Anxiety Cymbalta 90 mg daily- PCP prescribed for depression and anxiety chronic pain 3. ADHD Schedule Creyos testing obtain results neuropsychological testing ADHD stimulates education Discuss with patient risk of misuse, abuse, and addiction before prescribing stimulant medicines. [facility] [employer] patients not to share their prescribed stimulant with anyone else. Educate patients and their families on these serious risks, proper storage of the medicine, and proper disposal of any unused medicine. Educated patient will monitor Throughout treatment, regularly assess and monitor them for signs and symptoms of nonmedical use, addiction, and potential diversion, which may be evidenced by more frequent renewal. requests than warranted by the prescribed dosage. Random UDS [place] prescription reviewed local pharmacy in [place], no early refills on control substance educated on non-stimulate and stimulates 4. elevated blood pressure educated on healthy b/p 120/80 monitor b/p at home refer to PCP, Urgent care/ER heart healthy diet and excise limit salt intake limit soda intake and caffiene increase water Discussed and educated pt regarding benzodiazepines are generally not intended for prolonged use and that use can cause tolerance, dependence, depression, and associated memory issues including dementias (this list is not exhaustive). Benzodiazepine use is generally not recommended concurrently with pain medications and/or other controlled substances educated on all medications, benefits, side effects and risk, and educated on depression, anxiety, and ADHD, mood d/o and educated on compliance of medications, metabolic and movement d/o education appointment is, continue therapy discussion with patient about course of treatment and patient instructions. education on serotonin syndrome SSRI/SNRI side effects discussed including but not limited to, gastric upset, nausea, vomiting, diarrhea and/or constipation, weight changes, sexual side effects including loss of libido, increased suicidal thoughts/behaviors in children and young adults, and serotonin syndrome. Medication Management and Follow-Up - Plan: - Schedule follow-up appointments every 1-3 months to monitor the patient's response to the medication regimen. - Reinforce the importance of avoiding recreational drug use due to potential neurotoxicity and interactions with prescribed medications. 06/26/2024 MDD (major depressive disorder), recurrent episode, mild (ICD-10 - F33.0) Preventing Depression From Coming Back: Care Instructions material was published, Learning About Depression material was published, Learning About How to Get Help During a Mental Health Crisis material was published 1. DEPRESSION Cymbalta 90 mg daily- PCP prescribed for depression and chronic pain 2. Anxiety Cymbalta 90 mg daily- PCP prescribed for depression and anxiety chronic pain 3. ADHD reviewed Creyos testing Indicative ADHD Part A 6 Part B 01/20 ASRS 5 obtain results neuropsychological testing HX Wellbutrin ( does not tolerate severe dry mouth) Add Straterra 25 mg daily in am for 1 week then increase Straterra 40 mg daily in am patient has HTN and uncomtrolled currently and seeing PCP discuss cardiovascualr risk HTN and no stimulates discuss non stimulates options educated on non-stimulate obtain labs PCP 4. elevated blood pressure LAST 2 VISITS educated on healthy b/p 120/80 monitor b/p at home refer to PCP, Urgent care/ER heart healthy diet and excise limit salt intake limit soda intake and caffiene increase water Pateint not on B/P RX and seen PCP 06/05 and schedule to see PCP 12/03 - patient reported will call PCP today to be seen and discuss B/P sooner or Urgent care DISCUSS Cardiovascule risk and HTN and no stimulates with HTN discuss scheduling appt with PCP or may go to Urgent care for HTN, Discussed and educated pt regarding benzodiazepines are generally not intended for prolonged use and that use can cause tolerance, dependence, depression, and associated memory issues including dementias (this list is not exhaustive). Benzodiazepine use is generally not recommended concurrently with pain medications and/or other controlled substances educated on all medications, benefits, side effects and risk, and educated on depression, anxiety, and ADHD, mood d/o and educated on compliance of medications, metabolic and movement d/o education appointment is, continue therapy discussion with patient about course of treatment and patient instructions. education on serotonin syndrome SSRI/SNRI side effects discussed including but not limited to, gastric upset, nausea, vomiting, diarrhea and/or constipation, weight changes, sexual side effects including loss of libido, increased suicidal thoughts/behaviors in children and young adults, and serotonin syndrome. Medication Management and Follow-Up - Plan: - Schedule follow-up appointments every 1-3 months to monitor the patient's response to the medication regimen. - Reinforce the importance of avoiding recreational drug use due to potential neurotoxicity and interactions with prescribed medications. 07/24/2024 Elevated blood pressure reading (ICD-10 - R03.0) Learning About High Blood Pressure material was published, High Blood Pressure: Care Instructions material was published, Kidney Disease and High Blood Pressure: Care Instructions material was published, High Blood Pressure: Care Instructions material was published, Learning About High Blood Pressure material was published 1. DEPRESSION Cymbalta 90 mg daily- PCP prescribed for depression and chronic pain 2. Anxiety Cymbalta 90 mg daily- PCP prescribed for depression and anxiety chronic pain 3. ADHD reviewed Creyos testing Indicative ADHD Part A 08/14 Part B 01/20 ASRS 5 obtain results neuropsychological testing HX Wellbutrin ( does not tolerate severe dry mouth) increase Straterra 60 mg daily in am- tolerating rx no s/e patient has HTN and uncomtrolled currently and seeing PCP discuss cardiovascualr risk HTN and no stimulates discuss non stimulates options educated on non-stimulate obtain labs PCP 4. elevated blood pressure LAST 2 VISITS educated on healthy b/p 120/80 monitor b/p at home refer to PCP, Urgent care/ER heart healthy diet and excise limit salt intake limit soda intake and caffiene increase water Pateint not on B/P RX and seen PCP 06/05 and schedule to see PCP 08/03 - patient reported fabien monitor B/P and document BP for PCP and may start B/P rx with PCP next week appt, DISCUSS Cardiovascular risk and HTN and no stimulates with HTN Discussed and educated pt regarding benzodiazepines are generally not intended for prolonged use and that use can cause tolerance, dependence, depression, and associated memory issues including dementias (this list is not exhaustive). Benzodiazepine use is generally not recommended concurrently with pain medications and/or other controlled substances educated on all medications, benefits, side effects and risk, and educated on depression, anxiety, and ADHD, mood d/o and educated on compliance of medications, metabolic and movement d/o education appointment is, continue therapy discussion with patient about course of treatment and patient instructions. education on serotonin syndrome SSRI/SNRI side effects discussed including but not limited to, gastric upset, nausea, vomiting, diarrhea and/or constipation, weight changes, sexual side effects including loss of libido, increased suicidal thoughts/behaviors in children and young adults, and serotonin syndrome. Medication Management and Follow-Up - Plan: - Schedule follow-up appointments every 1-3 months to monitor the patient's response to the medication regimen. - Reinforce the importance of avoiding recreational drug use due to potential neurotoxicity and interactions with prescribed medications. 08/20/2024 MDD (major depressive disorder), recurrent episode, mild (ICD-10 - F33.0) Preventing Depression From Coming Back: Care Instructions material was published, Learning About Depression material was published, Learning About How to Get Help During a Mental Health Crisis material was published 1. DEPRESSION Cymbalta 90 mg daily- PCP prescribed for depression and chronic pain 2. Anxiety Cymbalta 90 mg daily- PCP prescribed for depression and anxiety chronic pain 3. ADHD reviewed Creyos testing Indicative ADHD Part A 08/14 Part B 01/20 ASRS 5 obtain results neuropsychological testing HX Wellbutrin ( does not tolerate severe dry mouth) Straterra 60 mg daily in am- reported not seeing a difference on rx tolerating rx no s/e Add Vyvanse 20 mg in am discuss rx and monitor B/P patient has HTN seeing PCP- starting B/P rx 08/28/24 discuss cardiovascualr risk HTN and no stimulates discuss non stimulates options educated on non-stimulate obtain labs PCP 4. elevated blood pressure - seen PCP and starting B/P rx 08/28/24 educated on healthy b/p 120/80 monitor b/p at home refer to PCP, Urgent care/ER heart healthy diet and excise limit salt intake limit soda intake and caffiene increase water DISCUSS Cardiovascular risk and HTN and no stimulates with HTN ADHD stimulates education- NO CANNABIS USE Discuss with patient risk of misuse, abuse, and addiction before prescribing stimulant medicines. [facility] [employer] patients not to share their prescribed stimulant with anyone else. Educate patients and their families on these serious risks, proper storage of the medicine, and proper disposal of any unused medicine. Educated patient will monitor Throughout treatment, regularly assess and monitor them for signs and symptoms of nonmedical use, addiction, and potential diversion, which may be evidenced by more frequent renewal. requests than warranted by the prescribed dosage. Random UDS [place] prescription reviewed local pharmacy in [place], no early refills on control substance educated on non-stimulate and stimulates Notes: BOXED WARNINGCaution with history of drug dependence or alcoholism. Marked tolerance and psychological dependence may result from chronic abusive use. Sree psychotic episodes may occur, especially with parenteral abuse. Careful supervision required for withdrawal from abusive use to avoid severe depression. Withdrawal following chronic use may unmask symptoms of underlying disorder that may require follow-up Educated patient unable to switch pharmacy or switch dosing for control substance once sent to pharmacy related to shortages or other reasons Discussed and educated pt regarding benzodiazepines are generally not intended for prolonged use and that use can cause tolerance, dependence, depression, and associated memory issues including dementias (this list is not exhaustive). Benzodiazepine use is generally not recommended concurrently with pain medications and/or other controlled substances educated on all medications, benefits, side effects and risk, and educated on depression, anxiety, and ADHD, mood d/o and educated on compliance of medications, metabolic and movement d/o education appointment is, continue therapy discussion with patient about course of treatment and patient instructions. education on serotonin syndrome SSRI/SNRI side effects discussed including but not limited to, gastric upset, nausea, vomiting, diarrhea and/or constipation, weight changes, sexual side effects including loss of libido, increased suicidal thoughts/behaviors in children and young adults, and serotonin syndrome. Medication Management and Follow-Up - Plan: - Schedule follow-up appointments every 1-3 months to monitor the patient's response to the medication regimen. - Reinforce the importance of avoiding recreational drug use due to potential neurotoxicity and interactions with prescribed medications. 09/20/2024 Elevated blood pressure reading (ICD-10 - R03.0) Learning About High Blood Pressure material was published, High Blood Pressure: Care Instructions material was published, Kidney Disease and High Blood Pressure: Care Instructions material was published, High Blood Pressure: Care Instructions material was published, Learning About High Blood Pressure material was published 1. DEPRESSION Cymbalta 90 mg daily- PCP prescribed for depression and chronic pain 2. Anxiety Cymbalta 90 mg daily- PCP prescribed for depression and anxiety chronic pain 3. ADHD reviewed Creyos testing Indicative ADHD Part A 6 Part B 01/20 ASRS 5 obtain results neuropsychological testing HX Wellbutrin ( does not tolerate severe dry mouth) Straterra 60 mg daily in am- tolerating rx no s/e Vyvanse 20 mg in am discuss rx and monitor B/P patient has HTN seeing PCP- B/P rx 08/28/24 discuss cardiovascualr risk HTN and no stimulates discuss non stimulates options educated on non-stimulate obtain labs PCP 4. elevated blood pressure - seen PCP and starting B/P rx 08/28/24 educated on healthy b/p 120/80 monitor b/p at home refer to PCP, Urgent care/ER heart healthy diet and excise limit salt intake limit soda intake and caffiene increase water DISCUSS Cardiovascular risk and HTN and no stimulates with HTN ADHD stimulates education- NO CANNABIS USE Discuss with patient risk of misuse, abuse, and addiction before prescribing stimulant medicines. [facility] [employer] patients not to share their prescribed stimulant with anyone else. Educate patients and their families on these serious risks, proper storage of the medicine, and proper disposal of any unused medicine. Educated patient will monitor Throughout treatment, regularly assess and monitor them for signs and symptoms of nonmedical use, addiction, and potential diversion, which may be evidenced by more frequent renewal. requests than warranted by the prescribed dosage. Random UDS [place] prescription reviewed local pharmacy in [place], no early refills on control substance educated on non-stimulate and stimulates Notes: BOXED WARNINGCaution with history of drug dependence or alcoholism. Marked tolerance and psychological dependence may result from chronic abusive use. Sree psychotic episodes may occur, especially with parenteral abuse. Careful supervision required for withdrawal from abusive use to avoid severe depression. Withdrawal following chronic use may unmask symptoms of underlying disorder that may require follow-up Educated patient unable to switch pharmacy or switch dosing for control substance once sent to pharmacy related to shortages or other reasons Discussed and educated pt regarding benzodiazepines are generally not intended for prolonged use and that use can cause tolerance, dependence, depression, and associated memory issues including dementias (this list is not exhaustive). Benzodiazepine use is generally not recommended concurrently with pain medications and/or other controlled substances educated on all medications, benefits, side effects and risk, and educated on depression, anxiety, and ADHD, mood d/o and educated on compliance of medications, metabolic and movement d/o education appointment is, continue therapy discussion with patient about course of treatment and patient instructions. education on serotonin syndrome SSRI/SNRI side effects discussed including but not limited to, gastric upset, nausea, vomiting, diarrhea and/or constipation, weight changes, sexual side effects including loss of libido, increased suicidal thoughts/behaviors in children and young adults, and serotonin syndrome. Medication Management and Follow-Up - Plan: - Schedule follow-up appointments every 1-3 months to monitor the patient's response to the medication regimen. - Reinforce the importance of avoiding recreational drug use due to potential neurotoxicity and interactions with prescribed medications. 12/21/2024 MDD (major depressive disorder), recurrent episode, mild (ICD-10 - F33.0) Preventing Depression From Coming Back: Care Instructions material was published, Learning About Depression material was published, Learning About How to Get Help During a Mental Health Crisis material was published 1. DEPRESSION Cymbalta 90 mg daily- PCP prescribed for depression and chronic pain 2. Anxiety Cymbalta 90 mg daily- PCP prescribed for depression and anxiety chronic pain 3. ADHD reviewed Creyos testing Indicative ADHD Part A 08/14 Part B 01/20 ASRS 5 obtain results neuropsychological testing HX Wellbutrin ( does not tolerate severe dry mouth) decrease Straterra 40 mg daily in am- for 1 week then stop tolerating rx no s/e Vyvanse 20 mg in am for 2 weeks then follow up discuss rx and monitor B/P and HR at home next weeks and bring into office and see PCP patient has HTN seeing PCP- B/P rx 08/28/24 discuss cardiovascualr risk HTN and no stimulates discuss non stimulates options educated on non-stimulate obtain labs PCP 4. elevated blood pressure - seen PCP and starting B/P rx 08/28/24 refer to see PCP with B/P and HR educated on healthy b/p 120/80 monitor b/p at home refer to PCP, Urgent care/ER heart healthy diet and excise limit salt intake limit soda intake and caffiene increase water DISCUSS Cardiovascular risk and HTN and no stimulates with HTN ADHD stimulates education- NO CANNABIS USE Discuss with patient risk of misuse, abuse, and addiction before prescribing stimulant medicines. [facility] [employer] patients not to share their prescribed stimulant with anyone else. Educate patients and their families on these serious risks, proper storage of the medicine, and proper disposal of any unused medicine. Educated patient will monitor Throughout treatment, regularly assess and monitor them for signs and symptoms of nonmedical use, addiction, and potential diversion, which may be evidenced by more frequent renewal. requests than warranted by the prescribed dosage. Random UDS [place] prescription reviewed local pharmacy in [place], no early refills on control substance educated on non-stimulate and stimulates Notes: BOXED WARNINGCaution with history of drug dependence or alcoholism. Marked tolerance and psychological dependence may result from chronic abusive use. Sree psychotic episodes may occur, especially with parenteral abuse. Careful supervision required for withdrawal from abusive use to avoid severe depression. Withdrawal following chronic use may unmask symptoms of underlying disorder that may require follow-up 5. Insomnia discuss and educated on Adding Trazodone 50 mg at bedtime Sleep Hygeine- - KEEP YOUR BEDROOM DARK - GET LOTS OF NATURAL LIGHT IN THE MORNING. - DON'T WORK ON YOUR COMPUTER OR PHONE LATE AT NIGHT. - AVOID NAPS DURING THE DAY. - NO CAFFEINE 3 HOURS OR MORE AFTER WAKE UP TIME. - ONLY USE YOUR BED FOR SLEEPING - GET A RELAXATION ROUTINE BEFORE BED. - IF YOU CAN'T GET TO SLEEP AFTER 15 TO 30 MINUTES GET OUT OF BED AND DO SOMETHING RELAXING. - DON'T DRINK ALCOHOL IN THE EVENING or limit alcohol to 1 drink. Discussed and educated pt regarding benzodiazepines are generally not intended for prolonged use and that use can cause tolerance, dependence, depression, and associated memory issues including dementias (this list is not exhaustive). Benzodiazepine use is generally not recommended concurrently with pain medications and/or other controlled substances educated on all medications, benefits, side effects and risk, and educated on depression, anxiety, and ADHD, mood d/o and educated on compliance of medications, metabolic and movement d/o education appointment is, continue therapy discussion with patient about course of treatment and patient instructions. education on serotonin syndrome SSRI/SNRI side effects discussed including but not limited to, gastric upset, nausea, vomiting, diarrhea and/or constipation, weight changes, sexual side effects including loss of libido, increased suicidal thoughts/behaviors in children and young adults, and serotonin syndrome. Medication Management and Follow-Up - Plan: - Schedule follow-up appointments every 1-3 months to monitor the patient's response to the medication regimen. - Reinforce the importance of avoiding recreational drug use due to potential neurotoxicity and interactions with prescribed medications. 12/21/2024 SHAYNE (generalized anxiety disorder) (ICD-10 - F41.1) Learning About Generalized Anxiety Disorder material was published, Generalized Anxiety Disorder: Care Instructions material was published, Learning About Anxiety Disorders material was published, Learning About Transcranial Magnetic Stimulation (TMS) material was published 1. DEPRESSION Cymbalta 90 mg daily- PCP prescribed for depression and chronic pain 2. Anxiety Cymbalta 90 mg daily- PCP prescribed for depression and anxiety chronic pain 3. ADHD reviewed [facility] testing Indicative ADHD Part A /6 Part B 01/20 ASRS 5 obtain results neuropsychological testing HX Wellbutrin ( does not tolerate severe dry mouth) decrease Straterra 40 mg daily in am- for 1 week then stop tolerating rx no s/e Vyvanse 20 mg in am for 2 weeks then follow up discuss rx and monitor B/P and HR at home next weeks and bring into office and see PCP patient has HTN seeing PCP- B/P rx 08/28/24 discuss cardiovascualr risk HTN and no stimulates discuss non stimulates options educated on non-stimulate obtain labs PCP 4. elevated blood pressure - seen PCP and starting B/P rx 08/28/24 refer to see PCP with B/P and HR educated on healthy b/p 120/80 monitor b/p at home refer to PCP, Urgent care/ER heart healthy diet and excise limit salt intake limit soda intake and caffiene increase water DISCUSS Cardiovascular risk and HTN and no stimulates with HTN ADHD stimulates education- NO CANNABIS USE Discuss with patient risk of misuse, abuse, and addiction before prescribing stimulant medicines. [facility] patients not to share their prescribed stimulant with anyone else. Educate patients and their families on these serious risks, proper storage of the medicine, and proper disposal of any unused medicine. Educated patient will monitor Throughout treatment, regularly assess and monitor them for signs and symptoms of nonmedical use, addiction, and potential diversion, which may be evidenced by more frequent renewal. requests than warranted by the prescribed dosage. Random [facility] prescription reviewed local pharmacy in [facility], no early refills on control substance educated on non-stimulate and stimulates Notes: BOXED WARNINGCaution with history of drug dependence or alcoholism. Marked tolerance and psychological dependence may result from chronic abusive use. Sree psychotic episodes may occur, especially with parenteral abuse. Careful supervision required for withdrawal from abusive use to avoid severe depression. Withdrawal following chronic use may unmask symptoms of underlying disorder that may require follow-up 5. Insomnia discuss and educated on Adding Trazodone 50 mg at bedtime Sleep Hygeine- - KEEP YOUR BEDROOM DARK - GET LOTS OF NATURAL LIGHT IN THE MORNING. - DON'T WORK ON YOUR COMPUTER OR PHONE LATE AT NIGHT. - AVOID NAPS DURING THE DAY. - NO CAFFEINE 3 HOURS OR MORE AFTER WAKE UP TIME. - ONLY USE YOUR BED FOR SLEEPING - GET A RELAXATION ROUTINE BEFORE BED. - IF YOU CAN'T GET TO SLEEP AFTER 15 TO 30 MINUTES GET OUT OF BED AND DO SOMETHING RELAXING. - DON'T DRINK ALCOHOL IN THE EVENING or limit alcohol to 1 drink. Discussed and educated pt regarding benzodiazepines are generally not intended for prolonged use and that use can cause tolerance, dependence, depression, and associated memory issues including dementias (this list is not exhaustive). Benzodiazepine use is generally not recommended concurrently with pain medications and/or other controlled substances educated on all medications, benefits, side effects and risk, and educated on depression, anxiety, and ADHD, mood d/o and educated on compliance of medications, metabolic and movement d/o education appointment is, continue therapy discussion with patient about course of treatment and patient instructions. education on serotonin syndrome SSRI/SNRI side effects discussed including but not limited to, gastric upset, nausea, vomiting, diarrhea and/or constipation, weight changes, sexual side effects including loss of libido, increased suicidal thoughts/behaviors in children and young adults, and serotonin syndrome. Medication Management and Follow-Up - Plan: - Schedule follow-up appointments every 1-3 months to monitor the patient's response to the medication regimen. - Reinforce the importance of avoiding recreational drug use due to potential neurotoxicity and interactions with prescribed medications. 08/20/2024 SHAYNE (generalized anxiety disorder) (ICD-10 - F41.1) Learning About Generalized Anxiety Disorder material was published, Generalized Anxiety Disorder: Care Instructions material was published, Learning About Anxiety Disorders material was published, Learning About Transcranial Magnetic Stimulation (TMS) material was published 1. DEPRESSION Cymbalta 90 mg daily- PCP prescribed for depression and chronic pain 2. Anxiety Cymbalta 90 mg daily- PCP prescribed for depression and anxiety chronic pain 3. ADHD reviewed [facility] testing Indicative ADHD Part A 08/14 Part B 01/20 ASRS 5 obtain results neuropsychological testing HX Wellbutrin ( does not tolerate severe dry mouth) Straterra 60 mg daily in am- reported not seeing a difference on rx tolerating rx no s/e Add Vyvanse 20 mg in am discuss rx and monitor B/P patient has HTN seeing PCP- starting B/P rx 08/28/24 discuss cardiovascualr risk HTN and no stimulates discuss non stimulates options educated on non-stimulate obtain labs PCP 4. elevated blood pressure - seen PCP and starting B/P rx 08/28/24 educated on healthy b/p 120/80 monitor b/p at home refer to PCP, Urgent care/ER heart healthy diet and excise limit salt intake limit soda intake and caffiene increase water DISCUSS Cardiovascular risk and HTN and no stimulates with HTN ADHD stimulates education- NO CANNABIS USE Discuss with patient risk of misuse, abuse, and addiction before prescribing stimulant medicines. [facility] [employer] patients not to share their prescribed stimulant with anyone else. Educate patients and their families on these serious risks, proper storage of the medicine, and proper disposal of any unused medicine. Educated patient will monitor Throughout treatment, regularly assess and monitor them for signs and symptoms of nonmedical use, addiction, and potential diversion, which may be evidenced by more frequent renewal. requests than warranted by the prescribed dosage. Random [facility] [place] prescription reviewed local pharmacy in [place], no early refills on control substance educated on non-stimulate and stimulates Notes: BOXED WARNINGCaution with history of drug dependence or alcoholism. Marked tolerance and psychological dependence may result from chronic abusive use. Sree psychotic episodes may occur, especially with parenteral abuse. Careful supervision required for withdrawal from abusive use to avoid severe depression. Withdrawal following chronic use may unmask symptoms of underlying disorder that may require follow-up Educated patient unable to switch pharmacy or switch dosing for control substance once sent to pharmacy related to shortages or other reasons Discussed and educated pt regarding benzodiazepines are generally not intended for prolonged use and that use can cause tolerance, dependence, depression, and associated memory issues including dementias (this list is not exhaustive). Benzodiazepine use is generally not recommended concurrently with pain medications and/or other controlled substances educated on all medications, benefits, side effects and risk, and educated on depression, anxiety, and ADHD, mood d/o and educated on compliance of medications, metabolic and movement d/o education appointment is, continue therapy discussion with patient about course of treatment and patient instructions. education on serotonin syndrome SSRI/SNRI side effects discussed including but not limited to, gastric upset, nausea, vomiting, diarrhea and/or constipation, weight changes, sexual side effects including loss of libido, increased suicidal thoughts/behaviors in children and young adults, and serotonin syndrome. Medication Management and Follow-Up - Plan: - Schedule follow-up appointments every 1-3 months to monitor the patient's response to the medication regimen. - Reinforce the importance of avoiding recreational drug use due to potential neurotoxicity and interactions with prescribed medications. 07/24/2024 MDD (major depressive disorder), recurrent episode, mild (ICD-10 - F33.0) Preventing Depression From Coming Back: Care Instructions material was published, Learning About Depression material was published, Learning About How to Get Help During a Mental Health Crisis material was published 1. DEPRESSION Cymbalta 90 mg daily- PCP prescribed for depression and chronic pain 2. Anxiety Cymbalta 90 mg daily- PCP prescribed for depression and anxiety chronic pain 3. ADHD reviewed [facility] testing Indicative ADHD Part A 5/6 Part B 01/20 ASRS 5 obtain results neuropsychological testing HX Wellbutrin ( does not tolerate severe dry mouth) increase Straterra 60 mg daily in am- tolerating rx no s/e patient has HTN and uncomtrolled currently and seeing PCP discuss cardiovascualr risk HTN and no stimulates discuss non stimulates options educated on non-stimulate obtain labs PCP 4. elevated blood pressure LAST 2 VISITS educated on healthy b/p 120/80 monitor b/p at home refer to PCP, Urgent care/ER heart healthy diet and excise limit salt intake limit soda intake and caffiene increase water Pateint not on B/P RX and seen PCP 06/05 and schedule to see PCP 08/03 - patient reported fabien monitor B/P and document BP for PCP and may start B/P rx with PCP next week appt, DISCUSS Cardiovascular risk and HTN and no stimulates with HTN Discussed and educated pt regarding benzodiazepines are generally not intended for prolonged use and that use can cause tolerance, dependence, depression, and associated memory issues including dementias (this list is not exhaustive). Benzodiazepine use is generally not recommended concurrently with pain medications and/or other controlled substances educated on all medications, benefits, side effects and risk, and educated on depression, anxiety, and ADHD, mood d/o and educated on compliance of medications, metabolic and movement d/o education appointment is, continue therapy discussion with patient about course of treatment and patient instructions. education on serotonin syndrome SSRI/SNRI side effects discussed including but not limited to, gastric upset, nausea, vomiting, diarrhea and/or constipation, weight changes, sexual side effects including loss of libido, increased suicidal thoughts/behaviors in children and young adults, and serotonin syndrome. Medication Management and Follow-Up - Plan: - Schedule follow-up appointments every 1-3 months to monitor the patient's response to the medication regimen. - Reinforce the importance of avoiding recreational drug use due to potential neurotoxicity and interactions with prescribed medications. 09/20/2024 MDD (major depressive disorder), recurrent episode, mild (ICD-10 - F33.0) Preventing Depression From Coming Back: Care Instructions material was published, Learning About Depression material was published, Learning About How to Get Help During a Mental Health Crisis material was published 1. DEPRESSION Cymbalta 90 mg daily- PCP prescribed for depression and chronic pain 2. Anxiety Cymbalta 90 mg daily- PCP prescribed for depression and anxiety chronic pain 3. ADHD reviewed [facility] testing Indicative ADHD Part A 08/14 Part B 01/20 ASRS 5 obtain results neuropsychological testing HX Wellbutrin ( does not tolerate severe dry mouth) Straterra 60 mg daily in am- tolerating rx no s/e Vyvanse 20 mg in am discuss rx and monitor B/P patient has HTN seeing PCP- B/P rx 08/28/24 discuss cardiovascualr risk HTN and no stimulates discuss non stimulates options educated on non-stimulate obtain labs PCP 4. elevated blood pressure - seen PCP and starting B/P rx 08/28/24 educated on healthy b/p 120/80 monitor b/p at home refer to PCP, Urgent care/ER heart healthy diet and excise limit salt intake limit soda intake and caffiene increase water DISCUSS Cardiovascular risk and HTN and no stimulates with HTN ADHD stimulates education- NO CANNABIS USE Discuss with patient risk of misuse, abuse, and addiction before prescribing stimulant medicines. [facility] [employer] patients not to share their prescribed stimulant with anyone else. Educate patients and their families on these serious risks, proper storage of the medicine, and proper disposal of any unused medicine. Educated patient will monitor Throughout treatment, regularly assess and monitor them for signs and symptoms of nonmedical use, addiction, and potential diversion, which may be evidenced by more frequent renewal. requests than warranted by the prescribed dosage. Random [facility] [place] prescription reviewed local pharmacy in [facility], no early refills on control substance educated on non-stimulate and stimulates Notes: BOXED WARNINGCaution with history of drug dependence or alcoholism. Marked tolerance and psychological dependence may result from chronic abusive use. Sree psychotic episodes may occur, especially with parenteral abuse. Careful supervision required for withdrawal from abusive use to avoid severe depression. Withdrawal following chronic use may unmask symptoms of underlying disorder that may require follow-up Educated patient unable to switch pharmacy or switch dosing for control substance once sent to pharmacy related to shortages or other reasons Discussed and educated pt regarding benzodiazepines are generally not intended for prolonged use and that use can cause tolerance, dependence, depression, and associated memory issues including dementias (this list is not exhaustive). Benzodiazepine use is generally not recommended concurrently with pain medications and/or other controlled substances educated on all medications, benefits, side effects and risk, and educated on depression, anxiety, and ADHD, mood d/o and educated on compliance of medications, metabolic and movement d/o education appointment is, continue therapy discussion with patient about course of treatment and patient instructions. education on serotonin syndrome SSRI/SNRI side effects discussed including but not limited to, gastric upset, nausea, vomiting, diarrhea and/or constipation, weight changes, sexual side effects including loss of libido, increased suicidal thoughts/behaviors in children and young adults, and serotonin syndrome. Medication Management and Follow-Up - Plan: - Schedule follow-up appointments every 1-3 months to monitor the patient's response to the medication regimen. - Reinforce the importance of avoiding recreational drug use due to potential neurotoxicity and interactions with prescribed medications. 06/26/2024 SHAYNE (generalized anxiety disorder) (ICD-10 - F41.1) Learning About Generalized Anxiety Disorder material was published, Generalized Anxiety Disorder: Care Instructions material was published, Learning About Anxiety Disorders material was published, Learning About Transcranial Magnetic Stimulation (TMS) material was published 1. DEPRESSION Cymbalta 90 mg daily- PCP prescribed for depression and chronic pain 2. Anxiety Cymbalta 90 mg daily- PCP prescribed for depression and anxiety chronic pain 3. ADHD reviewed [facility] testing Indicative ADHD Part A /6 Part B 01/20 ASRS 5 obtain results neuropsychological testing HX Wellbutrin ( does not tolerate severe dry mouth) Add Straterra 25 mg daily in am for 1 week then increase Straterra 40 mg daily in am patient has HTN and uncomtrolled currently and seeing PCP discuss cardiovascualr risk HTN and no stimulates discuss non stimulates options educated on non-stimulate obtain labs PCP 4. elevated blood pressure LAST 2 VISITS educated on healthy b/p 120/80 monitor b/p at home refer to PCP, Urgent care/ER heart healthy diet and excise limit salt intake limit soda intake and caffiene increase water Pateint not on B/P RX and seen PCP 06/05 and schedule to see PCP 12/03 - patient reported will call PCP today to be seen and discuss B/P sooner or Urgent care DISCUSS Cardiovascule risk and HTN and no stimulates with HTN discuss scheduling appt with PCP or may go to Urgent care for HTN, Discussed and educated pt regarding benzodiazepines are generally not intended for prolonged use and that use can cause tolerance, dependence, depression, and associated memory issues including dementias (this list is not exhaustive). Benzodiazepine use is generally not recommended concurrently with pain medications and/or other controlled substances educated on all medications, benefits, side effects and risk, and educated on depression, anxiety, and ADHD, mood d/o and educated on compliance of medications, metabolic and movement d/o education appointment is, continue therapy discussion with patient about course of treatment and patient instructions. education on serotonin syndrome SSRI/SNRI side effects discussed including but not limited to, gastric upset, nausea, vomiting, diarrhea and/or constipation, weight changes, sexual side effects including loss of libido, increased suicidal thoughts/behaviors in children and young adults, and serotonin syndrome. Medication Management and Follow-Up - Plan: - Schedule follow-up appointments every 1-3 months to monitor the patient's response to the medication regimen. - Reinforce the importance of avoiding recreational drug use due to potential neurotoxicity and interactions with prescribed medications. 07/24/2024 SHAYNE (generalized anxiety disorder) (ICD-10 - F41.1) Learning About Generalized Anxiety Disorder material was published, Generalized Anxiety Disorder: Care Instructions material was published, Learning About Anxiety Disorders material was published, Learning About Transcranial Magnetic Stimulation (TMS) material was published 1. DEPRESSION Cymbalta 90 mg daily- PCP prescribed for depression and chronic pain 2. Anxiety Cymbalta 90 mg daily- PCP prescribed for depression and anxiety chronic pain 3. ADHD reviewed [facility] testing Indicative ADHD Part A 08/14 Part B 01/20 ASRS 5 obtain results neuropsychological testing HX Wellbutrin ( does not tolerate severe dry mouth) increase Straterra 60 mg daily in am- tolerating rx no s/e patient has HTN and uncomtrolled currently and seeing PCP discuss cardiovascualr risk HTN and no stimulates discuss non stimulates options educated on non-stimulate obtain labs PCP 4. elevated blood pressure LAST 2 VISITS educated on healthy b/p 120/80 monitor b/p at home refer to PCP, Urgent care/ER heart healthy diet and excise limit salt intake limit soda intake and caffiene increase water Pateint not on B/P RX and seen PCP 06/05 and schedule to see PCP 08/03 - patient reported fabien monitor B/P and document BP for PCP and may start B/P rx with PCP next week appt, DISCUSS Cardiovascular risk and HTN and no stimulates with HTN Discussed and educated pt regarding benzodiazepines are generally not intended for prolonged use and that use can cause tolerance, dependence, depression, and associated memory issues including dementias (this list is not exhaustive). Benzodiazepine use is generally not recommended concurrently with pain medications and/or other controlled substances educated on all medications, benefits, side effects and risk, and educated on depression, anxiety, and ADHD, mood d/o and educated on compliance of medications, metabolic and movement d/o education appointment is, continue therapy discussion with patient about course of treatment and patient instructions. education on serotonin syndrome SSRI/SNRI side effects discussed including but not limited to, gastric upset, nausea, vomiting, diarrhea and/or constipation, weight changes, sexual side effects including loss of libido, increased suicidal thoughts/behaviors in children and young adults, and serotonin syndrome. Medication Management and Follow-Up - Plan: - Schedule follow-up appointments every 1-3 months to monitor the patient's response to the medication regimen. - Reinforce the importance of avoiding recreational drug use due to potential neurotoxicity and interactions with prescribed medications. 09/20/2024 SHAYNE (generalized anxiety disorder) (ICD-10 - F41.1) Learning About Generalized Anxiety Disorder material was published, Generalized Anxiety Disorder: Care Instructions material was published, Learning About Anxiety Disorders material was published, Learning About Transcranial Magnetic Stimulation (TMS) material was published 1. DEPRESSION Cymbalta 90 mg daily- PCP prescribed for depression and chronic pain 2. Anxiety Cymbalta 90 mg daily- PCP prescribed for depression and anxiety chronic pain 3. ADHD reviewed [facility] testing Indicative ADHD Part A 08/14 Part B 01/20 ASRS 5 obtain results neuropsychological testing HX Wellbutrin ( does not tolerate severe dry mouth) Straterra 60 mg daily in am- tolerating rx no s/e Vyvanse 20 mg in am discuss rx and monitor B/P patient has HTN seeing PCP- B/P rx 08/28/24 discuss cardiovascualr risk HTN and no stimulates discuss non stimulates options educated on non-stimulate obtain labs PCP 4. elevated blood pressure - seen PCP and starting B/P rx 08/28/24 educated on healthy b/p 120/80 monitor b/p at home refer to PCP, Urgent care/ER heart healthy diet and excise limit salt intake limit soda intake and caffiene increase water DISCUSS Cardiovascular risk and HTN and no stimulates with HTN ADHD stimulates education- NO CANNABIS USE Discuss with patient risk of misuse, abuse, and addiction before prescribing stimulant medicines. [facility] patients not to share their prescribed stimulant with anyone else. Educate patients and their families on these serious risks, proper storage of the medicine, and proper disposal of any unused medicine. Educated patient will monitor Throughout treatment, regularly assess and monitor them for signs and symptoms of nonmedical use, addiction, and potential diversion, which may be evidenced by more frequent renewal. requests than warranted by the prescribed dosage. Random [facility] [place] prescription reviewed local pharmacy in [place], no early refills on control substance educated on non-stimulate and stimulates Notes: BOXED WARNINGCaution with history of drug dependence or alcoholism. Marked tolerance and psychological dependence may result from chronic abusive use. Sree psychotic episodes may occur, especially with parenteral abuse. Careful supervision required for withdrawal from abusive use to avoid severe depression. Withdrawal following chronic use may unmask symptoms of underlying disorder that may require follow-up Educated patient unable to switch pharmacy or switch dosing for control substance once sent to pharmacy related to shortages or other reasons Discussed and educated pt regarding benzodiazepines are generally not intended for prolonged use and that use can cause tolerance, dependence, depression, and associated memory issues including dementias (this list is not exhaustive). Benzodiazepine use is generally not recommended concurrently with pain medications and/or other controlled substances educated on all medications, benefits, side effects and risk, and educated on depression, anxiety, and ADHD, mood d/o and educated on compliance of medications, metabolic and movement d/o education appointment is, continue therapy discussion with patient about course of treatment and patient instructions. education on serotonin syndrome SSRI/SNRI side effects discussed including but not limited to, gastric upset, nausea, vomiting, diarrhea and/or constipation, weight changes, sexual side effects including loss of libido, increased suicidal thoughts/behaviors in children and young adults, and serotonin syndrome. Medication Management and Follow-Up - Plan: - Schedule follow-up appointments every 1-3 months to monitor the patient's response to the medication regimen. - Reinforce the importance of avoiding recreational drug use due to potential neurotoxicity and interactions with prescribed medications. 12/21/2024 Insomnia (ICD-10 - G47.00) 1. DEPRESSION Cymbalta 90 mg daily- PCP prescribed for depression and chronic pain 2. Anxiety Cymbalta 90 mg daily- PCP prescribed for depression and anxiety chronic pain 3. ADHD reviewed Creyos testing Indicative ADHD Part A /6 Part B 01/20 ASRS 5 obtain results neuropsychological testing HX Wellbutrin ( does not tolerate severe dry mouth) decrease Straterra 40 mg daily in am- for 1 week then stop tolerating rx no s/e Vyvanse 20 mg in am for 2 weeks then follow up discuss rx and monitor B/P and HR at home next weeks and bring into office and see PCP patient has HTN seeing PCP- B/P rx 08/28/24 discuss cardiovascualr risk HTN and no stimulates discuss non stimulates options educated on non-stimulate obtain labs PCP 4. elevated blood pressure - seen PCP and starting B/P rx 08/28/24 refer to see PCP with B/P and HR educated on healthy b/p 120/80 monitor b/p at home refer to PCP, Urgent care/ER heart healthy diet and excise limit salt intake limit soda intake and caffiene increase water DISCUSS Cardiovascular risk and HTN and no stimulates with HTN ADHD stimulates education- NO CANNABIS USE Discuss with patient risk of misuse, abuse, and addiction before prescribing stimulant medicines. [facility] patients not to share their prescribed stimulant with anyone else. Educate patients and their families on these serious risks, proper storage of the medicine, and proper disposal of any unused medicine. Educated patient will monitor Throughout treatment, regularly assess and monitor them for signs and symptoms of nonmedical use, addiction, and potential diversion, which may be evidenced by more frequent renewal. requests than warranted by the prescribed dosage. Random [facility] prescription reviewed local pharmacy in [facility], no early refills on control substance educated on non-stimulate and stimulates Notes: BOXED WARNINGCaution with history of drug dependence or alcoholism. Marked tolerance and psychological dependence may result from chronic abusive use. Sree psychotic episodes may occur, especially with parenteral abuse. Careful supervision required for withdrawal from abusive use to avoid severe depression. Withdrawal following chronic use may unmask symptoms of underlying disorder that may require follow-up 5. Insomnia discuss and educated on Adding Trazodone 50 mg at bedtime Sleep Hygeine- - KEEP YOUR BEDROOM DARK - GET LOTS OF NATURAL LIGHT IN THE MORNING. - DON'T WORK ON YOUR COMPUTER OR PHONE LATE AT NIGHT. - AVOID NAPS DURING THE DAY. - NO CAFFEINE 3 HOURS OR MORE AFTER WAKE UP TIME. - ONLY USE YOUR BED FOR SLEEPING - GET A RELAXATION ROUTINE BEFORE BED. - IF YOU CAN'T GET TO SLEEP AFTER 15 TO 30 MINUTES GET OUT OF BED AND DO SOMETHING RELAXING. - DON'T DRINK ALCOHOL IN THE EVENING or limit alcohol to 1 drink. Discussed and educated pt regarding benzodiazepines are generally not intended for prolonged use and that use can cause tolerance, dependence, depression, and associated memory issues including dementias (this list is not exhaustive). Benzodiazepine use is generally not recommended concurrently with pain medications and/or other controlled substances educated on all medications, benefits, side effects and risk, and educated on depression, anxiety, and ADHD, mood d/o and educated on compliance of medications, metabolic and movement d/o education appointment is, continue therapy discussion with patient about course of treatment and patient instructions. education on serotonin syndrome SSRI/SNRI side effects discussed including but not limited to, gastric upset, nausea, vomiting, diarrhea and/or constipation, weight changes, sexual side effects including loss of libido, increased suicidal thoughts/behaviors in children and young adults, and serotonin syndrome. Medication Management and Follow-Up - Plan: - Schedule follow-up appointments every 1-3 months to monitor the patient's response to the medication regimen. - Reinforce the importance of avoiding recreational drug use due to potential neurotoxicity and interactions with prescribed medications. 06/08/2024 Other Learning About Depression Screening material was printed 1. DEPRESSION Cymbalta 90 mg daily- PCP prescribed for depression and chronic pain 2. Anxiety Cymbalta 90 mg daily- PCP prescribed for depression and anxiety chronic pain 3. ADHD Schedule Creyos testing obtain results neuropsychological testing ADHD stimulates education Discuss with patient risk of misuse, abuse, and addiction before prescribing stimulant medicines. [facility] [employer] patients not to share their prescribed stimulant with anyone else. Educate patients and their families on these serious risks, proper storage of the medicine, and proper disposal of any unused medicine. Educated patient will monitor Throughout treatment, regularly assess and monitor them for signs and symptoms of nonmedical use, addiction, and potential diversion, which may be evidenced by more frequent renewal. requests than warranted by the prescribed dosage. Random [facility] [place] prescription reviewed local pharmacy in [place], no early refills on control substance educated on non-stimulate and stimulates 4. elevated blood pressure educated on healthy b/p 120/80 monitor b/p at home refer to PCP, Urgent care/ER heart healthy diet and excise limit salt intake limit soda intake and caffiene increase water Discussed and educated pt regarding benzodiazepines are generally not intended for prolonged use and that use can cause tolerance, dependence, depression, and associated memory issues including dementias (this list is not exhaustive). Benzodiazepine use is generally not recommended concurrently with pain medications and/or other controlled substances educated on all medications, benefits, side effects and risk, and educated on depression, anxiety, and ADHD, mood d/o and educated on compliance of medications, metabolic and movement d/o education appointment is, continue therapy discussion with patient about course of treatment and patient instructions. education on serotonin syndrome SSRI/SNRI side effects discussed including but not limited to, gastric upset, nausea, vomiting, diarrhea and/or constipation, weight changes, sexual side effects including loss of libido, increased suicidal thoughts/behaviors in children and young adults, and serotonin syndrome. Medication Management and Follow-Up - Plan: - Schedule follow-up appointments every 1-3 months to monitor the patient's response to the medication regimen. - Reinforce the importance of avoiding recreational drug use due to potential neurotoxicity and interactions with prescribed medications. 06/26/2024 Other Atomoxetine material was published 1. DEPRESSION Cymbalta 90 mg daily- PCP prescribed for depression and chronic pain 2. Anxiety Cymbalta 90 mg daily- PCP prescribed for depression and anxiety chronic pain 3. ADHD reviewed Creyos testing Indicative ADHD Part A 08/14 Part B 01/20 ASRS 5 obtain results neuropsychological testing HX Wellbutrin ( does not tolerate severe dry mouth) Add Straterra 25 mg daily in am for 1 week then increase Straterra 40 mg daily in am patient has HTN and uncomtrolled currently and seeing PCP discuss cardiovascualr risk HTN and no stimulates discuss non stimulates options educated on non-stimulate obtain labs PCP 4. elevated blood pressure LAST 2 VISITS educated on healthy b/p 120/80 monitor b/p at home refer to PCP, Urgent care/ER heart healthy diet and excise limit salt intake limit soda intake and caffiene increase water Pateint not on B/P RX and seen PCP 06/05 and schedule to see PCP 12/03 - patient reported will call PCP today to be seen and discuss B/P sooner or Urgent care DISCUSS Cardiovascule risk and HTN and no stimulates with HTN discuss scheduling appt with PCP or may go to Urgent care for HTN, Discussed and educated pt regarding benzodiazepines are generally not intended for prolonged use and that use can cause tolerance, dependence, depression, and associated memory issues including dementias (this list is not exhaustive). Benzodiazepine use is generally not recommended concurrently with pain medications and/or other controlled substances educated on all medications, benefits, side effects and risk, and educated on depression, anxiety, and ADHD, mood d/o and educated on compliance of medications, metabolic and movement d/o education appointment is, continue therapy discussion with patient about course of treatment and patient instructions. education on serotonin syndrome SSRI/SNRI side effects discussed including but not limited to, gastric upset, nausea, vomiting, diarrhea and/or constipation, weight changes, sexual side effects including loss of libido, increased suicidal thoughts/behaviors in children and young adults, and serotonin syndrome. Medication Management and Follow-Up - Plan: - Schedule follow-up appointments every 1-3 months to monitor the patient's response to the medication regimen. - Reinforce the importance of avoiding recreational drug use due to potential neurotoxicity and interactions with prescribed medications. Plan Of Treatment Next Appt Details Provider Name:Yancy Navarro , 03/29/2025 11:30:00 AM, [address], [facility] [address], [place], [address], Insurance Providers Payer Name Payer Address Payer Phone Subscriber Number Group Number Insured Name Patient Relationship to Insured Coverage Start Date Coverage End Date [employer] [address] [place] [address] [id number] Liat Solano Self - patient is the insured Medical (General) History Medical History History ICD Code ADHD Covid Depression GERD Neuromuscular disorder Past Psychiatric History: Major Depressi ve Episode undefined abdominal aortic aneurysm: No atrial fibrillation: No chronic fatigue syndrome: No essential tremor: No hyperlipidemia: Yes hypertension: No Parkinson's disease: No restless leg syndrome: No stroke: No subdural hematoma: No type 1 diabetes mellitus: No type 2 diabetes mellitus: No vitamin B12 deficiency: No vitamin D deficiency: No Surgical History Surgery Date(Month/Year) Gall bladder removal ? Hospitalization History Reason Date(Month/Year) bowel obstruction 2012
--- NOTE | 2025-01-18 23:04 | ECG_ITS ---
Test Date: 2025-01-18 23:11:11 Measurements Intervals [place] Rate: 100 P: 38 DC: 148 QRS: 6 QRSD: 85 T: 46 QT: 338 QTc: 436 Interpretive Statements SINUS TACHYCARDIA CONSIDER INFERIOR INFARCT, AGE INDETERMINATE BASELINE ARTIFACT- II, III, AVR, AVL, AVF ABNORMAL ECG No previous ECG available for comparison Electronically Signed On 01-19-2025 09:03:56 CDT by Randy Sanz D.O.
[2025-01-18 23:17] VITALS: BP 188/110; PULSE 102; RESP 18; O2SAT 100
[2025-01-18] MEDS: ALPRAZolam (*CRX) 0.25 MG TABLET PO (23:26)
[2025-01-18 23:32] VITALS: BP 173/74; PULSE 102; RESP 20; O2SAT 100
[2025-01-18 23:35] LABS: HCO3 ABG 18.7 mmol/L (23-29); Oxygen Saturation ABG 94.4 % (95-97); PCO2 ABG 29.6 mmHg (35-45); PO2 ABG 79.3 mmHg (80-90)
[2025-01-18 23:36] LABS: Hematocrit 33.5 % (35.0-49.0); Hemoglobin 10.7 g/dL (12.0-15.0); Immature Granulocyte Percent A 0.5 % (0.0-0.0); Lymphocytes Absolute Auto 1.80 K/mm3 (1.10-4.50); Mean Corpuscular HGB Conc 31.9 g/dL (32-36); Mean Corpuscular Hemoglobin 27.6 pg (27.0-31.0); Mean Corpuscular Volume 86.6 fL (78.0-102.0); Nucleated Red Blood Cells Absolute Auto 0.00 K/mm3 (0.00-0.00); Nucleated Red Blood Cells Perc 0.0 % (0-0.0); Platelet Count Result 278 K/mm3 (150-420); Red Blood Count 3.87 M/mm3 (4.20-5.40); White Blood Count 8.6 K/mm3 (4.8-10.8)
[2025-01-18 23:37] LABS: Modified Allen's Test Pass; Site Drawn RIGHT RADIAL
[2025-01-18 23:49] LABS: Alanine Aminotransferase 22 U/L (6-35); Albumin Level 4.4 g/dL (3.5-5.1); Alkaline Phosphatase 74 U/L (38-126); Anion Gap 12 mmol/L (4-12); Aspartate Amino Transferase 21 U/L (14-36); Bilirubin,Total 0.5 mg/dL (0.2-1.3); Blood Urea Nitrogen 19 mg/dL (7-17); Calcium 10.0 mg/dL (8.4-10.2); Carbon Dioxide 19 mmol/L (22-30); Chloride 111 mmol/L (98-107); Estimated CRCL calculation 130 ml/min; Estimated Glomerular Filt Rate > 60; Glucose 121 mg/dL (65-110); Osmolality Calculated 297 mOsm/kg (285-295); Potassium 3.6 mmol/L (3.4-5.0); Sodium 142 mmol/L (137-145); Total Protein 7.6 g/dL (6.3-8.2)
[2025-01-18 23:54] LABS: INR 0.9; Partial Thromboplastin Time 24.7 Sec (23.9-30.70); Prothrombin Time 10.1 Seconds (9.50-12.1)
[2025-01-19 00:01] LABS: Troponin I < 0.012 ng/mL (0.000-0.034)
[2025-01-19 00:02] VITALS: BP 174/75; PULSE 97; RESP 27; O2SAT 100
[2025-01-19 00:06] LABS: Procalcitonin 0.1 ng/mL
[2025-01-19 00:11] LABS: Influenza A QL RT-PCR Negative (Negative); Influenza B QL RT-PCR Negative (Negative); RSV RNA, RT-PCR Negative (Negative); SARS-CoV-2 RNA PCR Negative (Negative)
--- NOTE | 2025-01-19 00:15 | PC.NURSE ---
Lab results back, Dr Schneider in to speak w/ pt about need for CTA d/t elevated D Dimer, pt resting, continuing to monitor, pt ambulates steadily per self to BR and is notably SOB w/ exertion.
[2025-01-19 00:22] VITALS: BP 180/92; PULSE 95; O2SAT 99
[2025-01-19 00:26] LABS: Add Urine Microscopic? YES; Appearance Urine Clear (Clear); Glucose Urine UA Negative (Negative); Leukocyte Esterase Ur Trace LEU/UL (Negative); Nitrate Urine Negative (Negative); Specific Grav Ur 1.010 (1.010-1.020)
[2025-01-19] MEDS: LACTATED RINGERS 500 ML 999 ML IV CONT (00:51)
[2025-01-19 01:27] VITALS: BP 160/80; PULSE 94; RESP 26; TEMP 36.6; O2SAT 99
[2025-01-19 02:08] LABS: NT Pro B Type Natriuretic Pept 389 pg/mL (19.9-100)
== END 2025-01-19 01:27 | disposition home or self-care (01) ==
PROVIDERS: Emergency Provider Internal Medicine Critical Care Medicine
DX: F41.9 Anxiety disorder, unspecified (principal); E11.9 Type 2 diabetes mellitus without complications; E78.5 Hyperlipidemia, unspecified; Z20.822 Contact with and (suspected) exposure to COVID-19
CPT/HCPCS: 36415; 36600; 71045; 71275; 80053; 81001; 82805; 83605; 83880; 84145; 84484; 85025; 85380; 85610; 85730; 87637; 93005; 99284; A9270; J7120; Q9967